=== PATIENT | female | born 1985 | race Caucasian/White ===

== ENCOUNTER 2016-07-02 13:17 | Emergency (ER) | payer SELFPAY ==
[2016-07-02] MEDS ORDERED: ONDANSETRON HCL INJ/PF 4 MG/2 ML SDV IV ONE ×2 (13:33→18:25)
[2016-07-02] MEDS ORDERED: NORMAL SALINE 1000 ML 1,000 ML IV ONE (13:33)
--- NOTE | 2016-07-02 13:34 | ER Document Report ---
ED Medical Screen (RME) - General Chief Complaint: Abdominal Pain Stated Complaint: ABDOMINAL PAIN Time Seen by Provider: 07/02/16 13:30 Notes: Patient resents with a few months of some intermittent abdominal nonradiating "pain" initially to her epigastric and right upper quadrant region and now in the lower pelvic region. She denies any dysuria, diarrhea, and has had intermittent vomiting. She denies . TRAVEL OUTSIDE OF THE [place] IN LAST 30 DAYS: Yes - Related Data Allergies/Adverse Reactions: No Known Allergies Allergy (Verified 12/25/11 10:38) Past Medical History - Past Medical History Cardiac Medical History: Denies: Hx Coronary Artery Disease, Hx Hypertension Pulmonary Medical History: Denies: Hx Asthma Endocrine Medical History: Denies: Hx Diabetes Mellitus Type 1, Hx Diabetes Mellitus Type 2 Renal/ Medical History: Denies: Hx Peritoneal Dialysis Past Surgical History: Reports: Hx Tonsillectomy, Hx Urinary Tract Surgery - Urethral stretching - Immunizations Hx Diphtheria, Pertussis, Tetanus Vaccination: Yes Physical Exam - Vital signs Vitals: Temp Pulse Resp BP Pulse Ox 98.2 F 131 H 18 122/100 H 97 07/02/16 13:22 07/02/16 13:22 07/02/16 13:22 07/02/16 13:22 07/02/16 13:22 Course - Vital Signs Vital signs: Temp Pulse Resp BP Pulse Ox 98.2 F 131 H 18 122/100 H 97 07/02/16 13:22 07/02/16 13:22 07/02/16 13:22 07/02/16 13:22 07/02/16 13:22
[2016-07-02 14:28] LABS: ABSOLUTE LYMPHOCYTES (AUTO) 2.4 10^3/uL (0.5-4.7); ABSOLUTE MONOCYTES (AUTO) 0.9 10^3/uL (0.1-1.4); ABSOLUTE NEUT (AUTO) 11.2 10^3/uL (1.7-8.2); BASOPHILS % (AUTO) 0.3 % (0-2); EOSINOPHILS % (AUTO) 0.3 % (0-6); HEMATOCRIT 39.6 % (36.0-47.0); HEMOGLOBIN 13.1 g/dL (12.0-15.5); HGB HCT DIFFERENCE -0.3; LYMPHOCYTES % (AUTO) 16.7 % (13-45); MEAN CORPUSCULAR HEMOGLOBIN 29.1 pg (27.0-33.4); MEAN CORPUSCULAR VOLUME 88 fl (80-97); MONOCYTES % (AUTO) 6.3 % (3-13); RED CELL DISTRIBUTION WIDTH 13.7 % (11.5-14.0); SEGMENTED NEUTROPHILS % (AUTO) 76.4 % (42-78); WHITE BLOOD COUNT 14.6 10^3/uL (4.0-10.5)
[2016-07-02 14:49] LABS: APPEARANCE,URINE SLIGHTLY-CLOUDY; BILIRUBIN,URINE NEGATIVE (NEGATIVE); GLUCOSE, URINE NEGATIVE (NEGATIVE); KETONES,URINE NEGATIVE (NEGATIVE); LEUKOCYTE ESTERASE,URINE NEGATIVE (NEGATIVE); NITRITE,URINE NEGATIVE (NEGATIVE); PROTEIN,URINE NEGATIVE (NEGATIVE); URINE SPECIFIC GRAVITY 1.028; UROBILINOGEN,URINE NEGATIVE mg/dL (<2.0)
[2016-07-02 14:51] LABS: BLOOD UREA NITROGEN 10 mg/dL (7-20); CALCIUM 10.4 mg/dL (8.4-10.2); CREATININE RESULT 0.85 mg/dL (0.52-1.25); GLUCOSE 92 mg/dL (75-110)
[2016-07-02 14:52] LABS: ALANINE AMINOTRANSFERASE 33 U/L (9-52); ALBUMIN 4.1 g/dL (3.5-5.0); ALKALINE PHOSPHATASE 118 U/L (38-126); ANION GAP 14 (5-19); ASPARTATE AMINO TRANSFERASE 21 U/L (14-36); BILIRUBIN,DIRECT 0.5 mg/dL (0.0-0.4); BILIRUBIN,TOTAL 0.8 mg/dL (0.2-1.3); CARBON DIOXIDE 22 mmol/L (22-30); CHLORIDE 104 mmol/L (98-107); LIPASE 72.2 U/L (23-300); POTASSIUM 4.3 mmol/L (3.6-5.0); SODIUM 139.5 mmol/L (137-145); TOTAL PROTEIN 7.5 g/dL (6.3-8.2)
--- NOTE | 2016-07-02 14:56 | ER Document Report ---
ED GI/ - General Mode of Arrival: Ambulatory Information source: Patient TRAVEL OUTSIDE OF THE [place] IN LAST 30 DAYS: Yes - HPI Patient complains to provider of: Abdominal pain, Vomiting. No: Diarrhea Onset: Other - 3 weeks ago Location: LLQ, RLQ Associated symptoms: Other - see notes above <GURPREET TOVAR - Last Filed: 07/02/16 18:28> <RENÉ ABBASI - Last Filed: 07/02/16 22:27> - General Chief Complaint: Abdominal Pain Stated Complaint: ABDOMINAL PAIN Time Seen by Provider: 07/02/16 14:40 Notes: 30 year old female with history of PCOS presents to the ED complaining of intermittent bilateral lower quadrant abdominal pain that started 3 weeks ago. Patient additionally complains of chills, constipation, nausea, and vomiting in the past 48 hours, but denies any diarrhea or fever. Patient denies any nausea or vomiting today. Patient reports that she feels worse today than she was yesterday stating that her abdominal pain has worsened. Patient was historically (2013) taking Victoza and Metformin, but has since stopped taking the medication after she was having episodes of nausea and vomiting when starting it. Patient had a endoscopy performed in 2013 which resulted in no significant findings. (GURPREET TOVAR) - Related Data Allergies/Adverse Reactions: No Known Allergies Allergy (Verified 12/25/11 10:38) Past Medical History - General Information source: Patient - Social History Smoking Status: Never Smoker Chew tobacco use (# tins/day): No Frequency of alcohol use: None Drug Abuse: None Family History: Reviewed & Not Pertinent Renal/ Medical History: Reports: Other - PCOS Past Surgical History: Reports: Hx Tonsillectomy, Hx Urinary Tract Surgery - Urethral stretching - Immunizations Hx Diphtheria, Pertussis, Tetanus Vaccination: Yes <GURPREET TOVAR - Last Filed: 07/02/16 18:28> Review of Systems - Review of Systems Constitutional: See HPI, Chills. denies: Fever EENT: No symptoms reported Cardiovascular: No symptoms reported Respiratory: No symptoms reported Gastrointestinal: See HPI, Nausea, Vomiting, Constipation. denies: Diarrhea Genitourinary: No symptoms reported Female Genitourinary: No symptoms reported Musculoskeletal: No symptoms reported Skin: No symptoms reported Hematologic/Lymphatic: No symptoms reported Neurological/Psychological: No symptoms reported -: Yes All other systems reviewed and negative <GURPREET TOVAR - Last Filed: 07/02/16 18:28> Physical Exam - Vital signs Interpretation: Normal - General General appearance: Appears well, Alert - HEENT Head: Normocephalic, Atraumatic Eyes: Normal Pupils: PERRL - Respiratory Respiratory status: No respiratory distress Chest status: Nontender Breath sounds: Normal Chest palpation: Normal - Cardiovascular Rhythm: Regular Heart sounds: Normal auscultation Murmur: No - Abdominal Inspection: Normal Distension: No distension Bowel sounds: Normal Tenderness: Tender - Mild diffuse, worse in bilateral lower quadrant. No: Guarding, Rebound Organomegaly: No organomegaly - Back Back: Normal, Nontender - Extremities General upper extremity: Normal inspection, Nontender, Normal color, Normal ROM , Normal temperature General lower extremity: Normal inspection, Nontender, Normal color, Normal ROM , Normal temperature, Normal weight bearing. No: Sharon's sign - Neurological Neuro grossly intact: Yes Cognition: Normal Orientation: AAOx4 [place] Coma Scale Eye Opening: Spontaneous Lucia Coma Scale Verbal: Oriented Lucia Coma Scale Motor: Obeys Commands Lucia Coma Scale Total: 15 Speech: Normal Motor strength normal: LUE, RUE, LLE, RLE Sensory: Normal - Psychological Associated symptoms: Normal affect, Normal mood - Skin Skin Temperature: Warm Skin Moisture: Dry Skin Color: Normal <RENÉ ABBASI - Last Filed: 07/02/16 22:27> - Vital signs Vitals: Temp Pulse Resp BP Pulse Ox 98.2 F 131 H 18 122/100 H 97 07/02/16 13:22 07/02/16 13:22 07/02/16 13:22 07/02/16 13:22 07/02/16 13:22 Course - Laboratory Result Diagrams: 07/02/16 13:45 07/02/16 13:45 <GURPREET TOVAR - Last Filed: 07/02/16 18:28> - Laboratory Result Diagrams: 07/02/16 13:45 07/02/16 13:45 - Diagnostic Test Radiology reviewed: Reports reviewed <RENÉ ABBASI - Last Filed: 07/02/16 22:27> - Re-evaluation Re-evalutation: 07/02/16 15:23 Patient was updated on results. 07/02/16 16:14 Patient was updated on results. (GURPREET TOVAR) 07/02/16 18:26 Patient is a 30-year-old female who comes in complaining of abdominal pain and vomiting. Patient has a CT showing diverticulitis. Patient given Cipro and Flagyl. Patient is able to tolerate by mouth. She'll be discharged home with antibiotics, pain and nausea medication. Patient has a appointment with a new primary doctor next week which she is instructed to keep. Return immediately if any worsening or concerning symptoms. Understands and agrees with plan. Grateful for care. (RENÉ ABBASI) - Vital Signs Vital signs: Temp Pulse Resp BP Pulse Ox 97.8 F 112 H 20 149/85 H 97 07/02/16 19:11 07/02/16 19:11 07/02/16 19:11 07/02/16 19:11 07/02/16 19:11 - Laboratory Laboratory results interpreted by me: 07/02/16 07/02/16 07/02/16 13:40 13:45 13:45 WBC 14.6 H Absolute Neutrophils 11.2 H Calcium 10.4 H Direct Bilirubin 0.5 H Urine Blood SMALL H Discharge <GURPREET TOVAR - Last Filed: 07/02/16 18:28> <RENÉ ABBASI - Last Filed: 07/02/16 22:27> - Discharge Clinical Impression: Diverticulitis large intestine Qualifiers: Diverticulitis bleeding: without bleeding Diverticulitis complication: without perforation or abscess Qualified Code(s): K57.32 - Diverticulitis of large intestine without perforation or abscess without bleeding Condition: Stable Disposition: HOME, SELF-CARE Instructions: Diverticulitis ([facility]) Additional Instructions: Please follow-up with your doctor next week as scheduled. Prescriptions: Ciprofloxacin HCl [Cipro 500 mg Tablet] 500 mg PO BID #20 tablet Metoclopramide HCl [Reglan 10 mg Tablet] 1 - 2 tab PO ASDIR PRN #25 tablet PRN Reason: Metronidazole [Flagyl 500 mg Tablet] 500 mg PO TID #30 tablet Ondansetron [Zofran Odt 4 mg Tablet] 1 - 2 tab PO Q4H PRN #15 tab.rapdis PRN Reason: For Nausea/Vomiting Forms: Return to Work Scribe Attestation: 07/02/16 22:27 I personally performed the services described in the documentation, reviewed and edited the documentation which was dictated to the scribe in my presence, and it accurately records my words and actions. (RENÉ ABBASI) Scribe Documentation - Scribe Written by Paras:: Paras Harrison, 07/02/2016 1536 acting as scribe for :: Wilfrido <GURPREET TOVAR - Last Filed: 07/02/16 18:28>
[2016-07-02] MEDS ORDERED: CIPROFLOXACIN 400 MG/D5W RTU 200 ML IV ONE (16:15)
[2016-07-02] MEDS ORDERED: METRONIDAZOLE 500 MG/NS RTU 100 ML IV ONE (16:15)
[2016-07-02] MEDS ORDERED: ACETAMINOPHEN 325 MG TABLET PO ONE (18:25)
[2016-07-02] MEDS ORDERED: ONDANSETRON ODT 4 MG TAB (6 TAB/DSPK) PO PRN (18:56)
[2016-07-02 19:12] VITALS: BP 149/85
== END 2016-07-02 19:12 | disposition home or self-care (01) ==
LOC: ER 13:17
DX: R10.31 Right lower quadrant pain (principal); K57.32 Diverticulitis of large intestine without perforation or abscess without bleeding; R10.32 Left lower quadrant pain; R11.2 Nausea with vomiting, unspecified
CPT/HCPCS: 96376; 99284; 96375; 96365; 96368; 36415; 83690; 85025; 81025; 80053; 81001; 74177; J2405; J7030; J0744

== ENCOUNTER 2016-07-10 06:08 | Emergency (ER) | payer SELFPAY ==
[2016-07-10] MEDS ORDERED: NORMAL SALINE 1000 ML 1,000 ML IV ONE (06:19)
[2016-07-10] MEDS ORDERED: ONDANSETRON HCL INJ/PF 4 MG/2 ML SDV IV ONE (06:54)
[2016-07-10] MEDS ORDERED: MORPHINE SULFATE 10 MG/ML INJ IV ONE (06:54)
--- NOTE | 2016-07-10 06:56 | ER Document Report ---
ED General - General Chief Complaint: Abdominal Pain Stated Complaint: ABDOMINAL PAIN Time Seen by Provider: 07/10/16 06:09 Mode of Arrival: Ambulatory Information source: Patient Notes: 30-year-old female history of diverticulitis diagnosed 1 week prior and placed on Cipro and Flagyl with complaints of continued pain. Patient denies any fevers or chills admits to mild nausea vomiting patient notes symptoms would improve with antibiotics but since yesterday the pain has worsened patient is to see her surgeon today TRAVEL OUTSIDE OF THE [place] IN LAST 30 DAYS: No - HPI Onset: Last week Onset/Duration: Worse Quality of pain: Sharp Severity: Mild Pain Level: 1 Associated symptoms: Nausea, Vomiting Exacerbated by: Denies Relieved by: Denies Similar symptoms previously: Yes Recently seen / treated by doctor: Yes - Related Data Allergies/Adverse Reactions: No Known Allergies Allergy (Verified 12/25/11 10:38) Past Medical History - Social History Smoking Status: Never Smoker Cigarette use (# per day): No Chew tobacco use (# tins/day): No Smoking Education Provided: No Family History: Reviewed & Not Pertinent - Past Medical History Cardiac Medical History: Denies: Hx Coronary Artery Disease, Hx Hypertension Pulmonary Medical History: Denies: Hx Asthma Endocrine Medical History: Denies: Hx Diabetes Mellitus Type 1, Hx Diabetes Mellitus Type 2 Renal/ Medical History: Denies: Hx Peritoneal Dialysis Past Surgical History: Reports: Hx Tonsillectomy, Hx Urinary Tract Surgery - Urethral stretching - Immunizations Hx Diphtheria, Pertussis, Tetanus Vaccination: Yes Review of Systems - Review of Systems Notes: PHYSICAL EXAMINATION: GENERAL: Well-appearing, well-nourished and in no acute distress. HEAD: Atraumatic, normocephalic. EYES: Pupils equal round and reactive to light, extraocular movements intact, conjunctiva are normal. ENT: Nares patent, oropharynx clear without exudates. Moist mucous membranes. NECK: Normal range of motion, supple without lymphadenopathy LUNGS: Breath sounds clear to auscultation bilaterally and equal. No wheezes rales or rhonchi. HEART: Regular rate and rhythm without murmurs ABDOMEN: Soft, mildly tender in the suprapubic region Female : deferred Musculoskeletal: Normal range of motion, no pitting or edema. No cyanosis. NEUROLOGICAL: Cranial nerves grossly intact. Normal speech, normal gait. Normal sensory, motor exams PSYCH: Normal mood, normal affect. SKIN: Warm, Dry, normal turgor, no rashes or lesions noted. Physical Exam - Vital signs Vitals: Temp Pulse Resp BP Pulse Ox 98.4 F 109 H 18 139/97 H 98 07/10/16 06:14 07/10/16 06:14 07/10/16 06:14 07/10/16 06:14 07/10/16 06:14 Course - Re-evaluation Re-evalutation: 07/10/16 06:56 CT has been ordered with oral and IV contrast lab work pending 07/10/16 11:45 Patient notes improvement of her diverticulitis, patient does have gallstones and ultrasound was performed no acute cholecystitis was noted. Patient to follow-up with her surgeon for further care After performing a Medical Screening Examination, I estimate there is LOW risk for ACUTE APPENDICITIS, BOWEL OBSTRUCTION, ACUTE CHOLECYSTITIS, PERFORATED DIVERTICULITIS, INCARCERATED HERNIA, PANCREATITIS, PELVIC INFLAMMATORY DISEASE, PERFORATED ULCER, ECTOPIC , or TUBO-OVARIAN ABSCESS, thus I consider the discharge disposition reasonable. Also, there is no evidence or peritonitis , sepsis, or toxicity. I have reevaluated this patient multiple times and no significant life threatening changes are noted. The patient and I have discussed the diagnosis and risks, and we agree with discharging home with close follow-up with the understanding that symptoms and presentations can change. We also discussed returning to the Emergency Department immediately if new or worsening symptoms occur. We have discussed the symptoms which are most concerning (e.g., bloody stool, fever, changing or worsening pain, vomiting) that necessitate immediate return. - Vital Signs Vital signs: Temp Pulse Resp BP Pulse Ox 97.6 F 92 18 111/73 98 07/10/16 10:30 07/10/16 10:30 07/10/16 06:53 07/10/16 10:30 07/10/16 10:30 - Laboratory Result Diagrams: 07/10/16 07:30 07/10/16 07:30 Laboratory results interpreted by me: 07/10/16 07/10/16 07:30 07:30 WBC 11.2 H Absolute Neutrophils 8.3 H Glucose 111 H - Diagnostic Test Radiology reviewed: Image reviewed, Reports reviewed - Diverticulosis Discharge - Discharge Clinical Impression: Gallstones Abdominal pain Qualifiers: Abdominal location: generalized Qualified Code(s): R10.84 - Generalized abdominal pain Diverticulosis Qualifiers: Diverticulosis site: diverticulosis of large intestine Diverticulosis bleeding : diverticulosis without bleeding Qualified Code(s): K57.30 - Diverticulosis of large intestine without perforation or abscess without bleeding Condition: Stable Disposition: HOME, SELF-CARE Instructions: Abdominal Pain ([facility]) Referrals: ALEX ELDER MD [Primary Care Provider] - Follow up tomorrow
[2016-07-10] MEDS ORDERED: ACETAMINOPHEN 325 MG TABLET PO ONE (07:32)
[2016-07-10 07:39] LABS: ABSOLUTE MONOCYTES (AUTO) 0.7 10^3/uL (0.1-1.4); ABSOLUTE NEUT (AUTO) 8.3 10^3/uL (1.7-8.2); BASOPHILS % (AUTO) 0.4 % (0-2); EOSINOPHILS % (AUTO) 0.4 % (0-6); HEMATOCRIT 39.3 % (36.0-47.0); HEMOGLOBIN 13.3 g/dL (12.0-15.5); HGB HCT DIFFERENCE 0.6; MEAN CORPUSCULAR HEMOGLOBIN 29.3 pg (27.0-33.4); MEAN CORPUSCULAR HGB CONC 33.9 g/dL (32.0-36.0); MEAN CORPUSCULAR VOLUME 87 fl (80-97); MONOCYTES % (AUTO) 6.5 % (3-13); RED BLOOD COUNT 4.54 10^6/uL (3.72-5.28); RED CELL DISTRIBUTION WIDTH 13.7 % (11.5-14.0); SEGMENTED NEUTROPHILS % (AUTO) 74.7 % (42-78); WHITE BLOOD COUNT 11.2 10^3/uL (4.0-10.5)
[2016-07-10 07:52] LABS: ALANINE AMINOTRANSFERASE 30 U/L (9-52); ALBUMIN 3.9 g/dL (3.5-5.0); ALKALINE PHOSPHATASE 96 U/L (38-126); ANION GAP 10 (5-19); ASPARTATE AMINO TRANSFERASE 18 U/L (14-36); BILIRUBIN,DIRECT 0.4 mg/dL (0.0-0.4); BILIRUBIN,TOTAL 0.6 mg/dL (0.2-1.3); BLOOD UREA NITROGEN 7 mg/dL (7-20); CALCIUM 9.4 mg/dL (8.4-10.2); CARBON DIOXIDE 24 mmol/L (22-30); CHLORIDE 105 mmol/L (98-107); GLUCOSE 111 mg/dL (75-110); POTASSIUM 4.4 mmol/L (3.6-5.0); SODIUM 138.7 mmol/L (137-145); TOTAL PROTEIN 6.8 g/dL (6.3-8.2)
--- NOTE | 2016-07-10 09:40 | RADIOLOGY REPORT (SQ) ---
EXAM DESCRIPTION: CT ABD/PELVIS WITH IV ORAL COMPLETED DATE/TIME: 07/10/2016 9:28 am REASON FOR STUDY: hx diverticulitis COMPARISON: 07/02/2016. TECHNIQUE: CT scan of the abdomen and pelvis performed using helical scanning technique with dynamic intravenous contrast injection. No oral contrast. Images reviewed with lung, soft tissue, and bone windows. Reconstructed coronal and sagittal MPR images reviewed. Delayed images for evaluation of the urinary system also acquired. All images stored on PACS. All CT scanners at this facility use dose modulation, iterative reconstruction, and/or weight based d osing when appropriate to reduce radiation dose to as low as reasonably achievable (ALARA). [facility]: Dose Right [facility]: CareDose [facility]: Dose Right [facility]: Teradose 4D [facility]: [employer] Software CONTRAST TYPE AND DOSE: 99mL Isovue 370- low osmolar. RENAL FUNCTION: None required. The patient is less than 50 years old. RADIATION DOSE: 42.11mGy. LIMITATIONS: None. FINDINGS: LOWER CHEST: No significant findings. No nodules or infiltrates. LIVER: Normal size. No masses or dilated ducts. SPLEEN: Normal size. No focal lesions. PANCREAS: No masses. No significant calcifications. No adjacent inflammation or peripancreatic fluid collections. Pancreatic duct not dilated. GALLBLADDER: Gallstones. No inflammatory changes to suggest cholecystitis. ADRENAL GLANDS: No significant masses or asymmetry. RIGHT KIDNEY AND URETER: No solid masses. No significant calcifications. No hydronephrosis or hyd roureter. LEFT KIDNEY AND URETER: No solid masses. No significant calcifications. No hydronephrosis or hydr oureter. AORTA AND VESSELS: No aneurysm. No dissection. Renal arteries, SMA, celiac without stenosis. RETROPERITONEUM: No retroperitoneal adenopathy, hemorrhage or masses. BOWEL AND PERITONEAL CAVITY: Diverticuli in the colon. No masses or inflammatory changes. No free fl uid or peritoneal masses. APPENDIX: Normal. PELVIS: No mass or free fluid. Normal bladder. ABDOMINAL WALL: No masses. No hernias. BONES: No significant or acute findings. OTHER: No other significant finding. IMPRESSION: 1. COLONIC DIVERTICULOSIS. PREVIOUSLY SEEN FOCAL DIVERTICULITIS IN THE RIGHT UPPER QUADRANT IS NO LO NGER PRESENT. 2. GALLSTONES. 3. NO OTHER SIGNIFICANT OR ACUTE FINDING IN THE ABDOMEN OR PELVIS ON CT SCAN WITH IV CONTRAST. TECHNICAL DOCUMENTATION: JOB ID: [id number] Quality ID # [id number]: Final reports with documentation of one or more dose reduction techniques (e.g., Au tomated exposure control, adjustment of the mA and/or kV according to patient size, use of iterative reconstruction technique) 2010 [employer]- All Rights Reserved
[2016-07-10 10:37] VITALS: BP 111/73
--- NOTE | 2016-07-10 11:12 | RADIOLOGY REPORT (SQ) ---
EXAM DESCRIPTION: U/S ABDOMEN LIMITED W/O DOP COMPLETED DATE/TIME: 07/10/2016 10:57 am REASON FOR STUDY: RUQ pain COMPARISON: None. TECHNIQUE: Dynamic and static grayscale images acquired of the abdomen and recorded on PACS. Additio nal selected color Doppler and spectral images recorded. LIMITATIONS: None. FINDINGS: PANCREAS: No masses. Visualized pancreatic duct normal caliber. LIVER: No masses. Echotexture normal. LIVER VASCULATURE: Normal directional flow of the main portal vein and hepatic veins. GALLBLADDER: Contracted. Numerous gallstones with wall-echo -shadow sign. ULTRASOUND-DETECTED OCONNELL'S SIGN: Negative. INTRAHEPATIC DUCTS AND COMMON DUCT: CBD and intrahepatic ducts normal caliber. No filling defects. INFERIOR VENA CAVA: Normal flow. AORTA: No aneurysm. RIGHT KIDNEY: Normal size. Normal echogenicity. No solid or suspicious masses. No hydronephrosis. No calcifications. PERITONEAL AND RIGHT PLEURAL SPACE: No ascites or effusions. OTHER: No other significant findings. IMPRESSION: NUMEROUS GALLSTONES. NO BILIARY DILATION. REPORTED NEGATIVE SONOGRAPHIC OCONNELL SIGN. NO OTHER SIGNIFICANT FINDINGS. TECHNICAL DOCUMENTATION: JOB ID: [id number] [employer]- All Rights Reserved
== END 2016-07-10 11:58 | disposition home or self-care (01) ==
LOC: ER 06:08
DX: K57.30 Diverticulosis of large intestine without perforation or abscess without bleeding (principal); K85.10 Biliary acute pancreatitis without necrosis or infection; R10.84 Generalized abdominal pain; R11.2 Nausea with vomiting, unspecified; Z79.899 Other long term (current) drug therapy
CPT/HCPCS: 99284; 96361; 96374; 36415; 85025; 80053; 76705; 74177; J2405; J7030

== ENCOUNTER 2017-01-10 10:15 | Observation (INO) | payer OTHER ==
--- NOTE | 2017-01-10 10:40 | ER Document Report ---
ED Medical Screen (RME) - General Chief Complaint: Abdominal Pain Stated Complaint: ABDOMINAL PAIN Time Seen by Provider: 01/10/17 10:39 Notes: Patient says that she has been having pain across the upper abdomen since about 1 AM this morning. Patient has had similar pains at least 3 or 4 times in the past and has been told she has gallstones and gallbladder disease. She is vomited about 3 or 4 times. Has not had a fever, but has had cold sweats. Only medication control pills. No abdominal surgeries. TRAVEL OUTSIDE OF THE [place] IN LAST 30 DAYS: No - Related Data Allergies/Adverse Reactions: No Known Allergies Allergy (Verified 01/10/17 10:18) Past Medical History - Past Medical History Cardiac Medical History: Denies: Hx Coronary Artery Disease, Hx Hypertension Pulmonary Medical History: Denies: Hx Asthma Endocrine Medical History: Denies: Hx Diabetes Mellitus Type 1, Hx Diabetes Mellitus Type 2 Renal/ Medical History: Denies: Hx Peritoneal Dialysis Past Surgical History: Reports: Hx Tonsillectomy, Hx Urinary Tract Surgery - Urethral stretching - Immunizations Hx Diphtheria, Pertussis, Tetanus Vaccination: Yes Physical Exam - Vital signs Vitals: Temp Pulse Resp BP Pulse Ox 97.9 F 71 20 163/87 H 98 01/10/17 10:19 01/10/17 10:19 01/10/17 10:19 01/10/17 10:19 01/10/17 10:19 Course - Vital Signs Vital signs: Temp Pulse Resp BP Pulse Ox 97.9 F 71 20 163/87 H 98 01/10/17 10:19 01/10/17 10:19 01/10/17 10:19 01/10/17 10:19 01/10/17 10:19
[2017-01-10] MEDS ORDERED: ONDANSETRON HCL INJ/PF 4 MG/2 ML SDV IV ONE (10:41)
[2017-01-10] MEDS ORDERED: KETOROLAC TROMETHAMINE INJ/PF 30 MG/1 ML SDV IV ONE (10:41)
[2017-01-10 11:09] LABS: ABSOLUTE BASOPHILS # (AUTO) 0.1 10^3/uL (0.0-0.2); ABSOLUTE MONOCYTES (AUTO) 0.3 10^3/uL (0.1-1.4); ABSOLUTE NEUT (AUTO) 12.4 10^3/uL (1.7-8.2); BASOPHILS % (AUTO) 0.5 % (0-2); HEMATOCRIT 42.7 % (36.0-47.0); HEMOGLOBIN 14.4 g/dL (12.0-15.5); HGB HCT DIFFERENCE 0.5; LYMPHOCYTES % (AUTO) 7.4 % (13-45); MEAN CORPUSCULAR HEMOGLOBIN 29.7 pg (27.0-33.4); MEAN CORPUSCULAR HGB CONC 33.6 g/dL (32.0-36.0); MEAN CORPUSCULAR VOLUME 88 fl (80-97); MONOCYTES % (AUTO) 2.5 % (3-13); RED BLOOD COUNT 4.85 10^6/uL (3.72-5.28); RED CELL DISTRIBUTION WIDTH 13.4 % (11.5-14.0); SEGMENTED NEUTROPHILS % (AUTO) 89.6 % (42-78); WHITE BLOOD COUNT 13.9 10^3/uL (4.0-10.5)
[2017-01-10 11:14] LABS: APPEARANCE,URINE CLEAR; BILIRUBIN,URINE NEGATIVE (NEGATIVE); GLUCOSE, URINE NEGATIVE (NEGATIVE); KETONES,URINE TRACE mg/dL (NEGATIVE); LEUKOCYTE ESTERASE,URINE NEGATIVE (NEGATIVE); NITRITE,URINE NEGATIVE (NEGATIVE); PROTEIN,URINE 100 mg/dL (NEGATIVE); URINE SPECIFIC GRAVITY 1.027; UROBILINOGEN,URINE NEGATIVE mg/dL (<2.0)
[2017-01-10 11:29] LABS: ALANINE AMINOTRANSFERASE 44 U/L (9-52); ALBUMIN 4.4 g/dL (3.5-5.0); ALKALINE PHOSPHATASE 115 U/L (38-126); ANION GAP 17 (5-19); ASPARTATE AMINO TRANSFERASE 29 U/L (14-36); BILIRUBIN,DIRECT 0.4 mg/dL (0.0-0.4); BILIRUBIN,TOTAL 0.5 mg/dL (0.2-1.3); BLOOD UREA NITROGEN 7 mg/dL (7-20); CALCIUM 9.9 mg/dL (8.4-10.2); CARBON DIOXIDE 24 mmol/L (22-30); CHLORIDE 104 mmol/L (98-107); CREATININE RESULT 0.67 mg/dL (0.52-1.25); GLUCOSE 127 mg/dL (75-110); LIPASE 89.2 U/L (23-300); POTASSIUM 4.5 mmol/L (3.6-5.0); SODIUM 145.3 mmol/L (137-145); TOTAL PROTEIN 7.5 g/dL (6.3-8.2)
[2017-01-10] MEDS ORDERED: NORMAL SALINE 1000 ML 1,000 ML IV ONE ×2 (11:43)
[2017-01-10] MEDS ORDERED: ROCURONIUM BROMIDE INJ 50 MG/5 ML VIAL IV ONE (13:19)
[2017-01-10] MEDS ORDERED: SUCCINYLCHOLINE CHLORIDE INJ 200 MG/10 ML VIAL ONE (13:19)
--- NOTE | 2017-01-10 14:09 | RADIOLOGY REPORT (SQ) ---
EXAM DESCRIPTION: U/S ABDOMEN LIMITED W/O DOP COMPLETED DATE/TIME: 01/10/2017 1:42 pm REASON FOR STUDY: ruq epi pain after thanksgiving COMPARISON: 07/10/2016 TECHNIQUE: Dynamic and static grayscale images acquired of the abdomen and recorded on PACS. Michaelo octavio selected color Doppler and spectral images recorded. LIMITATIONS: None. FINDINGS: PANCREAS: No masses. Visualized pancreatic duct normal caliber. LIVER: No masses. Echotexture normal. LIVER VASCULATURE: Normal directional flow of the main portal vein and hepatic veins. GALLBLADDER: Gallstone(s). No pericholecystic fluid. No wall thickening. ULTRASOUND-DETECTED OCONNELL'S SIGN: Negative. INTRAHEPATIC DUCTS AND COMMON DUCT: CBD and intrahepatic ducts normal caliber. No filling defects. INFERIOR VENA CAVA: Normal flow. AORTA: No aneurysm. RIGHT KIDNEY: Normal size. Normal echogenicity. No solid or suspicious masses. No hydronephrosis. No calcifications. PERITONEAL AND RIGHT PLEURAL SPACE: No ascites or effusions. OTHER: No other significant findings. IMPRESSION: Cholelithiasis. TECHNICAL DOCUMENTATION: JOB ID: [id number]- All Rights Reserved
[2017-01-10] MEDS ORDERED: LEVOFLOXACIN 750 MG/D5W RTU 750 MG/150 ML RTUPB IV ONE (14:12)
[2017-01-10] MEDS ORDERED: BUPIVACAINE HCL 0.25 % INJ/PF (2.5 MG/1 ML) 30 ML VIAL ONE (14:23)
--- NOTE | 2017-01-10 14:26 | ER Document Report ---
ED General - General Chief Complaint: Abdominal Pain Stated Complaint: ABDOMINAL PAIN Time Seen by Provider: 01/10/17 10:39 TRAVEL OUTSIDE OF THE [place] IN LAST 30 DAYS: No - HPI Patient complains to provider of: Right upper quadrant abdominal pain Notes: Patient coming her right upper quadrant abdominal pain. Patient states started after eating Thanksgiving dinner yesterday. States last time she ate was 8:00. Patient states having slight nausea and vomiting. Patient has a history of gallstones and has been seen in the ER now total of 3 times for gallstones also states has a history of diverticulitis in the right upper quadrant in her colon. Denies any fever chills denies any diarrhea. Patient states most the pain is in the epigastric right upper quadrant region. Patient resting comfortably upon my evaluation. - Related Data Allergies/Adverse Reactions: No Known Allergies Allergy (Verified 01/10/17 10:18) Home Medications: Current Home Medications Norgestimate-Ethinyl Estradiol [Ortho Tri-Cyclen 28 Tablet] 1 tab PO DAILY 01/10 [History] Past Medical History - Social History Smoking Status: Current Some Day Smoker Chew tobacco use (# tins/day): No Frequency of alcohol use: Social Drug Abuse: None Family History: Reviewed & Not Pertinent Patient has suicidal ideation: No Patient has homicidal ideation: No - Past Medical History Cardiac Medical History: Denies: Hx Coronary Artery Disease, Hx Hypertension Pulmonary Medical History: Denies: Hx Asthma Endocrine Medical History: Denies: Hx Diabetes Mellitus Type 1, Hx Diabetes Mellitus Type 2 Renal/ Medical History: Denies: Hx Peritoneal Dialysis Past Surgical History: Reports: Hx Tonsillectomy, Hx Urinary Tract Surgery - Urethral stretching - Immunizations Hx Diphtheria, Pertussis, Tetanus Vaccination: Yes Review of Systems - Review of Systems Constitutional: No symptoms reported EENT: No symptoms reported Cardiovascular: No symptoms reported Respiratory: No symptoms reported Gastrointestinal: Abdominal pain Genitourinary: No symptoms reported Female Genitourinary: No symptoms reported Musculoskeletal: No symptoms reported Skin: No symptoms reported Hematologic/Lymphatic: No symptoms reported Neurological/Psychological: No symptoms reported -: Yes All other systems reviewed and negative Physical Exam - Vital signs Vitals: Temp Pulse Resp BP Pulse Ox 97.9 F 71 20 163/87 H 98 01/10/17 10:19 01/10/17 10:19 01/10/17 10:19 01/10/17 10:19 01/10/17 10:19 Interpretation: Normal - General General appearance: Appears well, Alert - HEENT Head: Normocephalic, Atraumatic Eyes: Normal Pupils: PERRL - Respiratory Respiratory status: No respiratory distress Chest status: Nontender Breath sounds: Normal Chest palpation: Normal - Cardiovascular Rhythm: Regular Heart sounds: Normal auscultation Murmur: No - Abdominal Inspection: Normal Distension: No distension Bowel sounds: Normal Tenderness: Tender, Rose's sign, Guarding. No: McBurney's point, Rebound Organomegaly: No organomegaly - Back Back: Normal, Nontender - Extremities General upper extremity: Normal inspection, Nontender, Normal color, Normal ROM , Normal temperature General lower extremity: Normal inspection, Nontender, Normal color, Normal ROM , Normal temperature, Normal weight bearing. No: Sharon's sign - Neurological Neuro grossly intact: Yes Cognition: Normal Orientation: AAOx4 Bushnell Coma Scale Eye Opening: Spontaneous Bushnell Coma Scale Verbal: Oriented Lucia Coma Scale Motor: Obeys Commands Bushnell Coma Scale Total: 15 Speech: Normal Motor strength normal: LUE, RUE, LLE, RLE Sensory: Normal - Psychological Associated symptoms: Normal affect, Normal mood - Skin Skin Temperature: Warm Skin Moisture: Dry Skin Color: Normal Course - Re-evaluation Re-evalutation: 01/10/17 15:14 Patient's lab work with a slight leukocytosis. Ultrasound shows cholelithiasis. General surgery on-call down to evaluate another patient I did ask him to evaluate the patient in her room at the discussion recommended the patient for a total cystectomy. Requested Levaquin. Patient will remain n.p.o. Levaquin will be ordered. Patient will be going to the OR for gallbladder removal. - Vital Signs Vital signs: Temp Pulse Resp BP Pulse Ox 97.8 F 75 20 160/80 H 100 01/10/17 14:09 01/10/17 14:09 01/10/17 14:09 01/10/17 14:09 01/10/17 14:09 - Laboratory Result Diagrams: 01/10/17 10:58 01/10/17 10:58 Laboratory results interpreted by me: 01/10/17 01/10/17 01/10/17 10:45 10:58 10:58 WBC 13.9 H Seg Neutrophils % 89.6 H Lymphocytes % 7.4 L Monocytes % 2.5 L Absolute Neutrophils 12.4 H Sodium 145.3 H Glucose 127 H Urine Protein 100 H Urine Ketones TRACE H Discharge - Discharge Clinical Impression: Symptomatic cholelithiasis Condition: Good Disposition: ADMITTED OBSERVATION Admitting Provider: Surgicalist Zachariah Torres Unit Admitted: OR
[2017-01-10] MEDS ORDERED: FENTANYL CITRATE INJ/PF 100 MCG/2 ML AMPUL ONE ×2 (14:57→15:42)
[2017-01-10] MEDS ORDERED: DEXAMETHASONE SOD PHOSPHATE INJ 4 MG/1 ML VIAL ONE (14:58)
[2017-01-10] MEDS ORDERED: ONDANSETRON HCL INJ/PF 4 MG/2 ML SDV ONE (14:58)
[2017-01-10] MEDS ORDERED: PROPOFOL INJ 200 MG/20 ML VIAL IV ONE (14:58)
[2017-01-10] MEDS ORDERED: MIDAZOLAM 2 MG/2 ML INJ ONE (14:58)
[2017-01-10] MEDS ORDERED: IBUPROFEN INJ 800 MG/8 ML VIAL IV ONE (14:59)
[2017-01-10] MEDS ORDERED: MORPHINE SULFATE 10 MG/ML INJ ONE (14:59)
--- NOTE | 2017-01-10 15:08 | HISTORY AND PHYSICAL E ---
History and Physical NAME: MARION ANTHONY : 1985 AGE: 31Y ADMITTED: 01/10/2017 ROOM: ED07 HISTORY OF PRESENT ILLNESS: The patient presented to the Emergency Room a 3rd time with a history of pain in the upper abdomen/right upper quadrant area with nausea, lack of appetite. The patient presented to the Emergency Room 2 times in the past for the last 2-3 months, known to have multiple large gallstones, presented with more upper abdominal pain. The patient has no fever, no history of jaundice, and she was thought to have diverticular disease in the past also. REVIEW OF SYSTEMS: Review of systems as per examination. PHYSICAL EXAMINATION: GENERAL: She is awake, alert, oriented, and no jaundice. HEAD AND NECK EXAMINATION: No lymphadenopathy. No masses. CHEST EXAM: Both lungs are clear to auscultation. CARDIOVASCULAR EXAMINATION: Both heart sounds regular. No murmurs or gallops. ABDOMINAL EXAMINATION: She has a soft abdomen. Tenderness in the right upper quadrant area. No palpable masses. No palpable hernia. EXTREMITIES: Warm, well perfused. DIAGNOSTIC DATA: Her gallbladder ultrasound revealed multiple gallstones, large, borderline thickening of the gallbladder wall. White count 7.9. IMPRESSION OVERALL: 1. Acute cholecystitis with gallstones. 2. Recurrent presentation to the Emergency Room. PLAN: Admit. IV hydration. N.p.o. Levaquin started. Plan on cholecystectomy today. DICTATING PHYSICIAN: NIGEL LEONARD M.D. [id number] PHY#: [id number] ID: [id number] JOB#: [id number] ACCT: [id number] cc:JAILYN ELDER M.D. >
[2017-01-10] MEDS ORDERED: BUPIVACAINE HCL 0.5%-EPI 1:200000 INJ/PF 30 ML VIAL ONE (15:21)
[2017-01-10] MEDS ORDERED: PROMETHAZINE HCL INJ 25 MG/1 ML VIAL IV PRN ×2 (15:37)
[2017-01-10] MEDS ORDERED: DIPHENHYDRAMINE HCL 50 MG/ML VIAL IV PRN (15:37)
[2017-01-10] MEDS ORDERED: OXYCODONE-ACETAMINOPHEN 5-325 MG TABLET PO PRN ×2 (15:37)
[2017-01-10] MEDS ORDERED: MEPERIDINE HCL/PF INJ 25 MG/1 ML DISP.SYRIN IV PRN (15:37)
[2017-01-10] MEDS ORDERED: MORPHINE SULFATE 10 MG/ML INJ IV PRN (15:37)
[2017-01-10] MEDS ORDERED: FENTANYL CITRATE INJ/PF 100 MCG/2 ML AMPUL IV PRN ×3 (15:37)
[2017-01-10] MEDS ORDERED: HYDROMORPHONE HCL INJ/PF 2 MG/ML AMPULE IV PRN (16:41)
[2017-01-10] MEDS ORDERED: HYDROCODONE/ACETAMINOPHEN 5-325 MG TABLET PO PRN (16:41)
[2017-01-10] MEDS: ONDANSETRON HCL INJ/PF 4 MG/2 ML SDV IV PRN (17:27)
--- NOTE | 2017-01-10 18:03 | OPERATIVE REPORT E ---
Operative Report NAME: MARION ANTHONY : 1985 AGE: 31Y DATE OF SURGERY: 01/10/2017 ROOM: 533 PREOPERATIVE DIAGNOSIS: ACUTE CALCULOUS CHOLECYSTITIS. POSTOPERATIVE DIAGNOSIS: ACUTE CALCULOUS CHOLECYSTITIS. OPERATION: Laparoscopic cholecystectomy. SURGEON: NIGEL LEONARD M.D. ANESTHESIA: General. BLOOD LOSS: 10 mL. SPECIMEN: Gallbladder with contents, multiple gallstones. HISTORY AND INDICATIONS: Patient has history of gallstones, multiple episodes of cholecystitis in the past and previous visits to the emergency room with it. Now she came to the emergency room today. I saw her in the emergency room. She had tenderness in the right upper quadrant area with white cells of 13.9, consistent with acute cholecystitis, severe pain. Needs to have a cholecystectomy. I explained about indications of the operation, risks, benefits and complications, including but not limited to infection, bleeding, pain, bile leak, need for further interventions, possible in the future. All were thoroughly described, and with informed consent, she was taken to the operating room. DESCRIPTION OF PROCEDURE: After adequate anesthesia, in supine position, SCD boots, abdomen was cleaned and draped as a sterile field. Initial access, infraumbilical 1-cm incision was made, a 12-mm trocar inserted. Under direct laparoscopic visualization, 5-mm trocar inserted in the epigastric area, another 5-mm in the right upper quadrant. Findings: Gallbladder was acutely inflamed, distended, thick-walled, edematous, indicating acute cholecystitis, packed with multiple stones. Carefully, gallbladder neck was dissected. Cystic artery was small. It was dissected very carefully all around that area, after application of Hemoclips, divided with a Harmonic scalpel, with complete hemostasis. After that, the cystic duct was clearly dissected all around. After that, the gallbladder was decompressed. The cystic duct was distended. It was taken down from all the way to the gallbladder neck area. Now the cystic duct was circumferentially carefully clearly dissected all around it. It was ligated by 2 applications of Endoloop, one with 0 Vicryl, the other one with 0 PDS. Once it was suture-ligated, the cystic duct was divided close to the gallbladder neck. Gallbladder and its contents were retrieved with an Endo Catch bag. Afterwards, the gallbladder bed, the subhepatic area and abdominal cavity copiously irrigated and suctioned out completely, thoroughly hemostatic. Then all the trocars were removed and the pneumoperitoneum was evacuated. Closure with 0 Vicryl for the fascia in 2 layers and 3-0 and 4-0 Monocryl for the skin. Dressings were applied. Patient tolerated procedure without any problems and taken to recovery room in stable condition. DICTATING PHYSICIAN: NIGEL LEONARD M.D. [id number] PHY#: [id number] ID: [id number] JOB#: [id number] ACCT: [id number] cc:NIGEL LEONARD M.D. > MTDD
[2017-01-11] MEDS: ONDANSETRON HCL INJ/PF 4 MG/2 ML SDV IV PRN (05:22)
[2017-01-11 08:21] VITALS: BP 126/71
--- NOTE | 2017-01-11 09:43 | DISCHARGE SUMMARY E ---
Discharge Summary NAME: MARION ANTHONY : 1985 AGE: 31Y ADMITTED: 01/10/2017 DISCHARGED: 01/11/2017 ADMITTING DIAGNOSIS: Acute cholecystitis. DISCHARGE DIAGNOSIS: Acute cholecystitis. OPERATIVE PROCEDURE: Laparoscopic cholecystectomy. HOSPITAL COURSE: The patient was admitted for postop management. She was admitted to the emergency room and underwent surgery and recovering very well. Pain is minimal, afebrile. She is tolerating a regular diet and overall she is doing very well. Abdominal exam is soft, nontender. Recovery has been very uneventful. She will go home with [place] for the pain. Followup will be planned in 2 weeks in the office. At the time of discharge, patient doing very well. DICTATING PHYSICIAN: NIGEL LEONARD M.D. [id number] PHY#: [id number] ID: [id number] JOB#: [id number] ACCT: [id number] cc:JAILYN ELDER M.D. Jyotsna LEDBETTER M.D. >
[2017-01-11] MEDS ORDERED: LEVOFLOXACIN 750 MG/D5W RTU 750 MG/150 ML RTUPB IV SCH (10:00)
[2017-01-11] MEDS ORDERED: ENOXAPARIN SODIUM INJ 40 MG/0.4 ML DISP.SYRIN SUBCUT SCH (10:00)
--- NOTE | 2017-01-11 12:33 | DISCHARGE SUMMARY E ---
Discharge Summary NAME: MARION ANTHONY : 1985 AGE: 31Y ADMITTED: 01/10/2017 DISCHARGED: 01/11/2017 ADMITTING DIAGNOSIS: Acute cholecystitis. DISCHARGE DIAGNOSIS: Acute cholecystitis. OPERATIVE PROCEDURE: Laparoscopic cholecystectomy. HOSPITAL COURSE: Patient was admitted for overnight observation. This morning she is doing well and feeling better. Tolerating a regular diet. No pain. No nausea. Otherwise doing very well, so we will discharge her home. Normal for the pain. Followup will be planned in the office in 2 weeks. At the time of discharge, patient doing very well. DICTATING PHYSICIAN: NIGEL LEONARD M.D. [id number] PHY#: [id number] ID: [id number] JOB#: [id number] ACCT: [id number] cc:JAILYN ELDER M.D., S[place]AR M.D. GARRETT, JAMES M.D. >
== END 2017-01-11 11:55 | disposition home or self-care (01) ==
LOC: ER 10:15 → EH 14:30 → 5 17:15
PROVIDERS: ATTEND Colon & Rectal Surgery
PROC: 0FT44ZZ Resection of Gallbladder, Percutaneous Endoscopic Approach (ICD-10-PCS; principal; 2017-01-10 15:15)
DX: K80.10 Calculus of gallbladder with chronic cholecystitis without obstruction (principal); F17.200 Nicotine dependence, unspecified, uncomplicated
CPT/HCPCS: 99285; 96374; 96375; 36415; 83690; 84703; 85025; 80053; 81001; 88304 ×2; 76705; 47562; G0378 ×2; J2250; J3490 ×2; J1100; J3010; J1885; J2270; J0330; J2405 ×2; J2704; J1741; 790

== ENCOUNTER 2017-02-15 07:56 | Emergency (ER) | payer OTHER ==
--- NOTE | 2017-02-15 09:05 | ER Document Report ---
ED General - General Chief Complaint: Post Surgical Pain Stated Complaint: INCISION SITE BLEEDING Time Seen by Provider: 02/15/17 08:24 Mode of Arrival: Ambulatory Information source: Patient Notes: 31-year-old female who had cholecystectomy performed 1 month prior presents with complaints of pain at the incision of her umbilicus. Patient notes foul smell and redness. She denies any fevers or chills denies any abdominal pain notes pain just at the site TRAVEL OUTSIDE OF THE [place] IN LAST 30 DAYS: No - HPI Onset: Yesterday Onset/Duration: Sudden Quality of pain: Burning Severity: Mild Pain Level: 1 Associated symptoms: Other Exacerbated by: Denies Relieved by: Denies Similar symptoms previously: No Recently seen / treated by doctor: No - Related Data Allergies/Adverse Reactions: No Known Allergies Allergy (Verified 02/15/17 08:03) Past Medical History - Social History Smoking Status: Never Smoker Cigarette use (# per day): No Chew tobacco use (# tins/day): No Smoking Education Provided: No Family History: Reviewed & Not Pertinent - Past Medical History Cardiac Medical History: Denies: Hx Congestive Heart Failure, Hx Coronary Artery Disease, Hx Heart Attack, Hx Hypertension Pulmonary Medical History: Denies: Hx Asthma, Hx Bronchitis, Hx COPD, Hx Pneumonia, Hx Tuberculosis Neurological Medical History: Denies: Hx Seizures Endocrine Medical History: Denies: Hx Diabetes Mellitus Type 1, Hx Diabetes Mellitus Type 2 Renal/ Medical History: Denies: Hx End Stage Renal Disease, Hx Kidney Stones, Hx Peritoneal Dialysis GI Medical History: Denies: Hx Cirrhosis, Hx Gastroesophageal Reflux Disease, Hx Ulcer Musculoskeltal Medical History: Denies Hx Arthritis, Denies Hx Multiple Sclerosis Psychiatric Medical History: Denies: Hx Bipolar Disorder, Hx Depression, Hx Schizophrenia Past Surgical History: Reports: Hx Tonsillectomy, Hx Urinary Tract Surgery - Urethral stretching - Immunizations Hx Diphtheria, Pertussis, Tetanus Vaccination: Yes Review of Systems - Review of Systems Notes: REVIEW OF SYSTEMS: CONSTITUTIONAL : Denies fever, chills, or sweats. Denies recent illness. EENT: Denies eye, ear, throat, or mouth pain or symptoms. Denies nasal or sinus congestion or discharge. Denies throat, tongue, or mouth swelling or difficulty swallowing. CARDIOVASCULAR: Denies chest pain. Denies palpitations or racing or irregular heart beat. Denies ankle edema. RESPIRATORY: Denies cough, cold, or chest congestion. Denies shortness of breath, difficulty breathing, or wheezing. GASTROINTESTINAL: Denies abdominal pain or distention. Denies nausea, vomiting , or diarrhea. Denies blood in vomitus, stools, or per rectum. Denies black, tarry stools. Denies constipation. GENITOURINARY: Denies difficulty urinating, painful urination, burning, frequency, blood in urine, or discharge. FEMALE GENITOURINARY: Denies vaginal bleeding, heavy or abnormal periods, irregular periods. Denies vaginal discharge or odor. MUSCULOSKELETAL: Admits to redness drainage from incision SKIN: Denies rash, lesions or sores. HEMATOLOGIC : Denies easy bruising or bleeding. LYMPHATIC: Denies swollen, enlarged glands. NEUROLOGICAL: Denies confusion or altered mental status. Denies passing out or loss of consciousness. Denies dizziness or lightheadedness. Denies headache. Denies weakness or paralysis or loss of use of either side. Denies problems with gait or speech. Denies sensory loss, numbness, or tingling. Denies seizures. PSYCHIATRIC: Denies anxiety or stress. Denies depression, suicidal ideation, or homicidal ideation. ALL OTHER SYSTEMS REVIEWED AND NEGATIVE. PHYSICAL EXAMINATION: GENERAL: Well-appearing, well-nourished and in no acute distress. HEAD: Atraumatic, normocephalic. EYES: Pupils equal round and reactive to light, extraocular movements intact, conjunctiva are normal. ENT: Nares patent, oropharynx clear without exudates. Moist mucous membranes. NECK: Normal range of motion, supple without lymphadenopathy LUNGS: Breath sounds clear to auscultation bilaterally and equal. No wheezes rales or rhonchi. HEART: Regular rate and rhythm without murmurs ABDOMEN: Soft, nontender, nondistended abdomen. No guarding, no rebound. No masses appreciated. Female : deferred Musculoskeletal: Normal range of motion, no pitting or edema. No cyanosis. NEUROLOGICAL: Cranial nerves grossly intact. Normal speech, normal gait. Normal sensory, motor exams PSYCH: Normal mood, normal affect. SKIN: 2 surgical incisions of the upper abdomen are well-healed, the incision of the umbilicus does have erythema around the umbilicus, there is a small pimple which was opened and drained, small thick amount of pus was removed Dictation was performed using Dragon voice recognition software Physical Exam - Vital signs Vitals: Temp Pulse Resp BP Pulse Ox 98.2 F 115 H 16 149/105 H 98 02/15/17 08:00 02/15/17 08:00 02/15/17 08:00 02/15/17 08:00 02/15/17 08:00 Course - Re-evaluation Re-evalutation: 02/15/17 09:04 The area was explored small amount of pus was taken out, I did clean the incision, I believe the patient has a superficial wound, I did explain to her that if she has any worsening symptoms she must return immediately. Patient is very happy with this plan After performing a Medical Screening Examination, I estimate there is LOW risk for OPEN FRACTURE, COMPARTMENT SYNDROME, TENDON RUPTURE, ACUTE NEUROVASCULAR INJURY, or RETAINED FOREIGN BODY, thus I consider the discharge disposition reasonable. Also, there is no evidence or peritonitis, sepsis, or toxicity. I have reevaluated this patient multiple times and no significant life threatening changes are noted. The patient and I have discussed the diagnosis and risks, and we agree with discharging home with close follow-up with the understanding that symptoms and presentations can change. We also discussed returning to the Emergency Department immediately if new or worsening symptoms occur. We have discussed the symptoms which are most concerning (e.g., changing or worsening pain, fever, numbness, weakness, cool or painful digits) that necessitate immediate return. - Vital Signs Vital signs: Temp Pulse Resp BP Pulse Ox 98.2 F 115 H 16 149/105 H 98 02/15/17 08:00 02/15/17 08:00 02/15/17 08:00 02/15/17 08:00 02/15/17 08:00 Discharge - Discharge Clinical Impression: Superficial incisional surgical site infection Qualifiers: Encounter type: initial encounter Qualified Code(s): T81.4XXA - Infection following a procedure, initial encounter Condition: Stable Disposition: HOME, SELF-CARE Instructions: Wound Infection ([facility]) Prescriptions: Cephalexin Monohydrate [Keflex 500 mg Capsule] 500 mg PO Q6H 10 Days capsule Sulfamethoxazole/Trimethoprim [Bactrim Ds Tablet] 2 each PO BID #40 tablet Referrals: ALEX ELDER MD [Primary Care Provider] - Follow up in 3-5 days
[2017-02-15 09:14] VITALS: BP 116/76
== END 2017-02-15 09:14 | disposition home or self-care (01) ==
LOC: ER 07:56
DX: T81.4XXA Infection following a procedure, initial encounter (principal); R23.8 Other skin changes; Y83.6 Removal of other organ (partial) (total) as the cause of abnormal reaction of the patient, or of later complication, without mention of misadventure at the time of the procedure; Z90.49 Acquired absence of other specified parts of digestive tract
CPT/HCPCS: 99283

== ENCOUNTER → 2017-06-25 | Outpatient (CLI) | payer OTHER ==
[2017-06-25 08:28] LABS: ABSOLUTE EOSINOPHILS # (AUTO) 0.1 10^3/uL (0.0-0.6); ABSOLUTE LYMPHOCYTES (AUTO) 2.4 10^3/uL (0.5-4.7); ABSOLUTE MONOCYTES (AUTO) 0.5 10^3/uL (0.1-1.4); ABSOLUTE NEUT (AUTO) 3.5 10^3/uL (1.7-8.2); BASOPHILS % (AUTO) 0.3 % (0-2); EOSINOPHILS % (AUTO) 1.6 % (0-6); HEMATOCRIT 40.8 % (36.0-47.0); HEMOGLOBIN 13.8 g/dL (12.0-15.5); LYMPHOCYTES % (AUTO) 36.6 % (13-45); MEAN CORPUSCULAR HEMOGLOBIN 29.7 pg (27.0-33.4); MEAN CORPUSCULAR HGB CONC 33.9 g/dL (32.0-36.0); MEAN CORPUSCULAR VOLUME 88 fl (80-97); MONOCYTES % (AUTO) 7.9 % (3-13); PLATELET COUNT 324 10^3/uL (150-450); RED BLOOD COUNT 4.65 10^6/uL (3.72-5.28); RED CELL DISTRIBUTION WIDTH 13.5 % (11.5-14.0); SEGMENTED NEUTROPHILS % (AUTO) 53.6 % (42-78); TOTAL CELLS COUNTED % (AUTO) 100 %; WHITE BLOOD COUNT 6.6 10^3/uL (4.0-10.5)
[2017-06-25 08:51] LABS: ALANINE AMINOTRANSFERASE 25 U/L (9-52); ALKALINE PHOSPHATASE 89 U/L (38-126); ANION GAP 12 (5-19); ASPARTATE AMINO TRANSFERASE 17 U/L (14-36); BILIRUBIN,DIRECT 0.2 mg/dL (0.0-0.4); BILIRUBIN,TOTAL 0.2 mg/dL (0.2-1.3); BLOOD UREA NITROGEN 7 mg/dL (7-20); CALCIUM 10.1 mg/dL (8.4-10.2); CARBON DIOXIDE 28 mmol/L (22-30); CHLORIDE 105 mmol/L (98-107); CHOLESTEROL 201.72 mg/dL (0-200); GLUCOSE 103 mg/dL (75-110); IRON(TIBC) 54.3 ug/dL (37-170); POTASSIUM 5.2 mmol/L (3.6-5.0); SODIUM 144.8 mmol/L (137-145); TRIGLYCERIDES 88 mg/dL (<150)
[2017-06-25 09:02] LABS: DIRECT LDL 115 mg/dL (<100)
[2017-06-25 09:31] LABS: APPEARANCE,URINE CLEAR; BILIRUBIN,URINE NEGATIVE (NEGATIVE); COLOR,URINE YELLOW; GLUCOSE, URINE NEGATIVE (NEGATIVE); KETONES,URINE NEGATIVE (NEGATIVE); LEUKOCYTE ESTERASE,URINE NEGATIVE (NEGATIVE); NITRITE,URINE NEGATIVE (NEGATIVE); PROTEIN,URINE NEGATIVE (NEGATIVE); URINE SPECIFIC GRAVITY 1.018
[2017-06-29 09:01] LABS: HELICOBACTER PYLORI IGA AB <9.0 units (0.0-8.9); HELICOBACTER PYLORI IGG AB <0.80 (0.00-0.79); HELICOBACTER PYLORI IGM AB <9.0 units (0.0-8.9)
== END ==
LOC: OD 07:19
PROVIDERS: ATTEND Family Medicine
DX: E28.2 Polycystic ovarian syndrome (principal); Z71.3 Dietary counseling and surveillance; E61.1 Iron deficiency; R10.816 Epigastric abdominal tenderness
CPT/HCPCS: 36415; 80053; 80061; 81001; 82607; 83036; 83540; 83550; 85025; 86677

== ENCOUNTER 2017-07-14 21:31 | Emergency (ER) | payer OTHER ==
[2017-07-14 21:47] VITALS: BP 147/93
[2017-07-14] MEDS ORDERED: TRAMADOL HCL 50 MG TABLET PO ONE (22:10)
--- NOTE | 2017-07-14 22:14 | ER Document Report ---
ED Extremity Problem, Lower - General Chief Complaint: Allergic Reaction Stated Complaint: POSSIBLE ALLERGIC REACTION Time Seen by Provider: 07/14/17 22:08 Mode of Arrival: Ambulatory Information source: Patient TRAVEL OUTSIDE OF THE [place] IN LAST 30 DAYS: No - HPI Patient complains to provider of: Injury Location: Ankle, Foot Notes: Patient is here with complaints of right foot and ankle pain. She states that a few days ago she was walking up the steps and twisted her right foot and ankle. She has been using crutches since that time and today while using her crutches they slipped on the wet spot on the steps and she reinjured the right foot and ankle again. She denies pain in the lateral aspect of the right foot and ankle. She denies striking her head. No numbness, tingling, weakness. No fever. No nausea, vomiting, diarrhea. No rash. No chest pain or shortness of breath. She denies any other injuries or complaints. Pain is worse with touching the area as well as ambulation, better with rest. Patient denies any other complaints at this time. - Related Data Allergies/Adverse Reactions: No Known Allergies Allergy (Verified 02/15/17 08:03) Past Medical History - Social History Smoking Status: Unknown if Ever Smoked Family History: Reviewed & Not Pertinent Patient has suicidal ideation: No Patient has homicidal ideation: No - Past Medical History Cardiac Medical History: Denies: Hx Congestive Heart Failure, Hx Coronary Artery Disease, Hx Heart Attack, Hx Hypertension Pulmonary Medical History: Denies: Hx Asthma, Hx Bronchitis, Hx COPD, Hx Pneumonia, Hx Tuberculosis Neurological Medical History: Denies: Hx Seizures Endocrine Medical History: Denies: Hx Diabetes Mellitus Type 1, Hx Diabetes Mellitus Type 2 Renal/ Medical History: Denies: Hx End Stage Renal Disease, Hx Kidney Stones, Hx Peritoneal Dialysis GI Medical History: Denies: Hx Cirrhosis, Hx Gastroesophageal Reflux Disease, Hx Ulcer Musculoskeltal Medical History: Denies Hx Arthritis, Denies Hx Multiple Sclerosis Psychiatric Medical History: Denies: Hx Bipolar Disorder, Hx Depression, Hx Schizophrenia Past Surgical History: Reports: Hx Cholecystectomy, Hx Tonsillectomy, Hx Urinary Tract Surgery - Urethral stretching - Immunizations Hx Diphtheria, Pertussis, Tetanus Vaccination: Yes Review of Systems - Review of Systems -: Yes All other systems reviewed and negative Physical Exam - Vital signs Vitals: Temp Pulse Resp BP Pulse Ox 99.1 F 93 18 147/93 H 98 07/14/17 21:44 07/14/17 21:44 07/14/17 21:44 07/14/17 21:44 07/14/17 21:44 - Notes Notes: GENERAL: alert, cooperative, nontoxic, no distress. HEAD: normocephalic, atraumatic EYES: conjunctiva pink without discharge, no external redness or swelling. EARS: no external swelling, no external redness NOSE: atraumatic, no external swelling MOUTH/THROAT: mucous membranes moist and pink NECK: soft, supple, full range of motion, no meningismus. CHEST: no distress, lungs clear and equal throughout. No wheezing, rales, rhonchi. CARDIAC: regular rate and rhythm, no murmur, normal capillary refill, normal pulses. BACK: full range of motion, no CVA tenderness. EXTREMITIES: Patient noted to have swelling and tenderness to the lateral aspect of the right foot and or lateral malleolus. Limited range of motion of the ankle secondary to pain. Normal pulse and sensation. Normal cap refill. Achilles is intact with a normal Cisneros's test. No proximal tib-fib tenderness. Knee exam is unremarkable. Skin is intact. Compartments are soft. NEURO: alert and oriented 3, no focal deficits, full range of motion of all extremities. PYSCH: appropriate mood, affect. Patient is cooperative. SKIN: pink, warm, dry, no rash. Course - Re-evaluation Re-evalutation: 07/14/17 22:11 Patient is nontoxic appearing with stable vitals. She is here with complaints of right foot and ankle pain. She twisted it a few days ago going up the steps and then while using her crutches today that she slipped and reinjured it again. She is noted to have swelling and tenderness lateral aspect of the right foot and lateral ankle. No redness or signs of infection. X-rays of the right foot and ankle show no acute fracture. Patient has crutches of her own at this time. She is currently already on an anti-inflammatory medication for chronic left knee issues. This point the patient will be given a dose of tramadol and I will write her a prescription for tramadol that she can take as needed for pain. She will be instructed to rest, ice, elevate. Follow-up if not better in 1 week, sooner for worsening pain, fever, numbness, tingling, weakness, redness, any further concerns. The patient is noted to have elevated blood pressure during today's emergency department visit. The patient was informed of this finding. The patient was instructed that this may be related to pre-hypertension and requires further evaluation with a primary care provider. The patient has no hypertensive symptoms at this time. The patient's emergency department workup and current diagnosis were explained to the patient and or family. Follow-up instructions were provided. Medications if prescribed were discussed. Instructions for when to return to the emergency department including specific worrisome symptoms were discussed with the patient and/or family. - Vital Signs Vital signs: Temp Pulse Resp BP Pulse Ox 99.1 F 93 18 147/93 H 98 07/14/17 21:44 07/14/17 21:44 07/14/17 21:44 07/14/17 21:44 07/14/17 21:44 - Diagnostic Test Radiology reviewed: Image reviewed, Reports reviewed - Right foot and ankle negative for acute fracture Procedures - Immobilization Right foot and ankle Pre-Proc Neuro Vasc Exam: Normal Immobilizer type: Keith wrap, Ankle stirrup Performed by: PCT Post-Proc Neuro Vasc Exam: Normal Alignment checked and good: Yes Discharge - Discharge Clinical Impression: Strain of right ankle and foot Qualifiers: Encounter type: initial encounter Qualified Code(s): S96.911A - Strain of unspecified muscle and tendon at ankle and foot level, right foot, initial encounter Condition: Stable Disposition: HOME, SELF-CARE Instructions: Exercises for the Foot Muscles ([facility]), Ankle Exercise Program ([facility] ), Ankle Stirrup Splint (OM), Sprained Ankle (OM) Additional Instructions: Take medication as prescribed. Wear splint and Ketih wrap as needed for comfort. Use her crutches as needed for comfort. Rest, ice, elevate. Follow-up if not better in 1 week, sooner for worsening pain, fever, redness, numbness, tingling, weakness, any further concerns. Your blood pressure was elevated during today's visit. Have this rechecked with your doctor. Prescriptions: Tramadol HCl [Ultram 50 mg Tablet] 50 mg PO Q6HP PRN #12 tablet PRN Reason: Forms: Elevated Blood Pressure, Smoking Cessation Education Referrals: ALEX ELDER MD [Primary Care Provider] - Follow up as needed
[2017-07-14] MEDS ORDERED: FAMOTIDINE 20 MG TABLET PO ONE (22:29)
[2017-07-14] MEDS ORDERED: PREDNISONE 20 MG TABLET PO ONE (22:29)
[2017-07-14] MEDS ORDERED: DIPHENHYDRAMINE HCL 25 MG CAPSULE PO ONE (22:29)
--- NOTE | 2017-07-14 22:32 | ER Document Report ---
ED Allergic Reaction - General Chief Complaint: Allergic Reaction Stated Complaint: POSSIBLE ALLERGIC REACTION Time Seen by Provider: 07/14/17 22:08 Mode of Arrival: Ambulatory Information source: Patient TRAVEL OUTSIDE OF THE [place] IN LAST 30 DAYS: No - HPI Patient complains to provider of: possible allergic reaction Notes: Patient is here with complaints of itching and rash. She states that this started earlier this evening. Started with a lot of itching in her head and then rash around the lower abdomen. Rash has since spread to her arms. She then noticed that the left side of her upper and lower lip are somewhat swollen. She denies any tongue swelling. She denies any difficulty breathing or swelling. No stridor. No wheezing. She denies fever. She denies nausea, vomiting, diarrhea. She denies any new soaps, detergents, lotions, medications. She is not on an ALFREDO inhibitor. She denies any known sick contacts. She denies any other complaints at this time. She took 25 mg of Benadryl a few hours ago with no significant change in her symptoms. Patient does state that she has had symptoms similar to this approximately 10 years ago that also involved joint swelling, she was told to be checked for RA and lupus, she states that she was checked for these things and the tests were negative. - Related Data Allergies/Adverse Reactions: No Known Allergies Allergy (Verified 02/15/17 08:03) Past Medical History - Social History Smoking Status: Unknown if Ever Smoked Family History: Reviewed & Not Pertinent Patient has suicidal ideation: No Patient has homicidal ideation: No - Past Medical History Cardiac Medical History: Denies: Hx Congestive Heart Failure, Hx Coronary Artery Disease, Hx Heart Attack, Hx Hypertension Pulmonary Medical History: Denies: Hx Asthma, Hx Bronchitis, Hx COPD, Hx Pneumonia, Hx Tuberculosis Neurological Medical History: Denies: Hx Seizures Endocrine Medical History: Denies: Hx Diabetes Mellitus Type 1, Hx Diabetes Mellitus Type 2 Renal/ Medical History: Denies: Hx End Stage Renal Disease, Hx Kidney Stones, Hx Peritoneal Dialysis GI Medical History: Denies: Hx Cirrhosis, Hx Gastroesophageal Reflux Disease, Hx Ulcer Musculoskeltal Medical History: Denies Hx Arthritis, Denies Hx Multiple Sclerosis Psychiatric Medical History: Denies: Hx Bipolar Disorder, Hx Depression, Hx Schizophrenia Past Surgical History: Reports: Hx Cholecystectomy, Hx Tonsillectomy, Hx Urinary Tract Surgery - Urethral stretching - Immunizations Hx Diphtheria, Pertussis, Tetanus Vaccination: Yes Review of Systems - Review of Systems -: Yes All other systems reviewed and negative Physical Exam - Vital signs Vitals: Temp Pulse Resp BP Pulse Ox 99.1 F 93 18 147/93 H 98 07/14/17 21:44 07/14/17 21:44 07/14/17 21:44 07/14/17 21:44 07/14/17 21:44 - Notes Notes: GENERAL: alert, cooperative, nontoxic, no distress. HEAD: normocephalic, atraumatic EYES: conjunctiva pink without discharge, no external redness or swelling. EARS: no external swelling, no external redness NOSE: atraumatic, no external swelling MOUTH/THROAT: mucous membranes moist and pink, posterior pharynx without erythema, swelling, exudate. No trismus or drooling. Mild swelling noted to the left aspect of the upper and lower lip. No tongue swelling. No trismus or drooling. No stridor. NECK: soft, supple, full range of motion, no meningismus. CHEST: no distress, lungs clear and equal throughout. No wheezing, rales, rhonchi. CARDIAC: regular rate and rhythm, no murmur, normal capillary refill, normal pulses. No peripheral edema noted. ABDOMEN: Soft, nontender. BACK: full range of motion, no CVA tenderness. EXTREMITIES: full range of motion of all extremities. No redness, no swelling. NEURO: alert and oriented x 3, no focal deficits, full range of motion of all extremities. PYSCH: appropriate mood, affect. Patient is cooperative. SKIN: pink, warm, dry, red macular rash as well as urticarial rash to the arms, lower abdomen and back. No vesicles. No petechiae. Course - Re-evaluation Re-evalutation: 07/14/17 23:30 Patient remains unchanged at this time. She has been given prednisone, Pepcid, Benadryl. I have discussed the case with Dr. Morfin. We will give a dose of epinephrine and continue to monitor. The patient has not worsened at all but has not improved. 07/15/17 00:22 Patient was given epinephrine and seems to be doing somewhat better at this time. The upper lip swelling has improved some, there is been no change in the lower lips with him. Patient states that her itching seems to be feeling better. Rash has improved. She is in no respiratory distress. She certainly has not worsened at all during her visit here. She has been observed here for about 2 hours and 45 minutes. I did offer to keep her here for further observation versus going ahead to discharge her home since she has not worsened in any way. Her and her were both comfortable with going home at this time. We will discharge the patient home on prednisone and Pepcid with instructions to take Benadryl every 6 hours. Follow-up with her primary care doctor at the next available appointment for reevaluation and further evaluation. Follow-up sooner/return the emergency department for worsening symptoms, high fever, persistent vomiting, worsening lip swelling, tongue swelling, difficulty breathing or swelling, or for any further concerns. Is not completely clear as to the source of her lip swelling or urticarial rash. It is possible that it could be an allergic reaction. Other differentials would include an autoimmune cause versus idiopathic urticaria. Patient tells me that she has been worked up in the past for autoimmune diseases that were negative. Did inform her that she should discuss this with her primary care doctor as they may want to reevaluate her for this again. The patient is noted to have elevated blood pressure during today's emergency department visit. The patient was informed of this finding. The patient was instructed that this may be related to pre-hypertension and requires further evaluation with a primary care provider. The patient has no hypertensive symptoms at this time. The patient's emergency department workup and current diagnosis were explained to the patient and or family. Follow-up instructions were provided. Medications if prescribed were discussed. Instructions for when to return to the emergency department including specific worrisome symptoms were discussed with the patient and/or family. - Vital Signs Vital signs: Temp Pulse Resp BP Pulse Ox 99.1 F 93 18 147/93 H 98 07/14/17 21:44 07/14/17 21:44 07/14/17 21:44 07/14/17 21:44 07/14/17 21:44 Discharge - Discharge Clinical Impression: Urticaria, Lip swelling Condition: Stable Disposition: HOME, SELF-CARE Instructions: Acute Urticaria ([facility]), Angioedema ([facility]) Additional Instructions: Take medications as prescribed. Take [id number] Benadryl every 6 hours as well. Follow-up with your doctor in the next 24-48 hours for reevaluation. Return the emergency department immediately for worsening swelling, difficulty breathing or swelling, fever, persistent vomiting, worsening rash, or for any further concerns. Your blood pressure was elevated during today's visit. Have this rechecked with your doctor. Prescriptions: Tramadol HCl [Ultram 50 mg Tablet] 50 mg PO Q6HP PRN #12 tablet PRN Reason: Famotidine [Pepcid 20 mg Tablet] 20 mg PO BID #30 tablet Prednisone [Deltasone 20 mg Tablet] 3 tab PO DAILY 5 Days tablet Forms: Elevated Blood Pressure, Smoking Cessation Education Referrals: ALEX ELDER MD [Primary Care Provider] - Follow up as needed
[2017-07-14] MEDS ORDERED: EPINEPHRINE INJ/PF 1 MG/1 ML AMPULE IM ONE (23:30)
== END 2017-07-15 00:40 | disposition home or self-care (01) ==
LOC: ER 21:31
DX: L50.9 Urticaria, unspecified (principal); R22.0 Localized swelling, mass and lump, head
CPT/HCPCS: 99283; 96372; J0171; J7512; L1902; L4350

== ENCOUNTER 2018-04-07 06:16 | Emergency (ER) | payer OTHER ==
[2018-04-07] MEDS ORDERED: ONDANSETRON HCL INJ/PF 4 MG/2 ML SDV IV ONE (06:54)
[2018-04-07] MEDS ORDERED: NORMAL SALINE 1000 ML 1,000 ML IV ONE ×2 (06:54→09:16)
[2018-04-07] MEDS ORDERED: PANTOPRAZOLE SODIUM 40 MG VIAL IV ONE (06:54)
--- NOTE | 2018-04-07 07:06 | ER Document Report ---
ED General - General Chief Complaint: Vomiting Stated Complaint: VOMITING BLOOD Time Seen by Provider: 04/07/18 06:47 Primary Care Provider: ALEX ELDER MD [Primary Care Provider] - Follow up as needed Notes: 32-year-old female presents to the emerge department with nausea and vomiting. The patient states she awoke at 3 AM and started vomiting. States she vomited so much that she had some blood-tinged emesis. She complains of some lower abdominal pain. Some sore throat from the vomiting. Denies fever or chills. Does have a history of diverticulitis and stated the last time she began vomiting like this she had diverticulitis. Denies chest pain denies shortness of breath. Denies black bloody or tarry stools denies diarrhea or constipation. TRAVEL OUTSIDE OF THE [place] IN LAST 30 DAYS: No - Related Data Allergies/Adverse Reactions: No Known Allergies Allergy (Verified 02/15/17 08:03) Past Medical History - Social History Smoking Status: Unknown if Ever Smoked Family History: Reviewed & Not Pertinent - Past Medical History Cardiac Medical History: Denies: Hx Congestive Heart Failure, Hx Coronary Artery Disease, Hx Heart Attack, Hx Hypertension Pulmonary Medical History: Denies: Hx Asthma, Hx Bronchitis, Hx COPD, Hx Pneumonia, Hx Tuberculosis Neurological Medical History: Denies: Hx Seizures Endocrine Medical History: Denies: Hx Diabetes Mellitus Type 1, Hx Diabetes Mellitus Type 2 Renal/ Medical History: Denies: Hx End Stage Renal Disease, Hx Kidney Stones, Hx Peritoneal Dialysis GI Medical History: Denies: Hx Cirrhosis, Hx Gastroesophageal Reflux Disease, Hx Ulcer Musculoskeletal Medical History: Denies Hx Arthritis, Denies Hx Multiple Sclerosis Psychiatric Medical History: Denies: Hx Bipolar Disorder, Hx Depression, Hx Schizophrenia Past Surgical History: Reports: Hx Cholecystectomy, Hx Tonsillectomy, Hx Urinary Tract Surgery - Urethral stretching - Immunizations Hx Diphtheria, Pertussis, Tetanus Vaccination: Yes Review of Systems - Review of Systems EENT: Throat pain Cardiovascular: denies: Chest pain, Dyspnea Gastrointestinal: Abdominal pain, Nausea, Vomiting, Blood in vomit. denies: Diarrhea, Constipation Skin: denies: Rash Neurological/Psychological: denies: Headaches -: Yes All other systems reviewed and negative Physical Exam - Vital signs Vitals: Temp Pulse Resp BP Pulse Ox 98.6 F 126 H 19 145/101 H 96 04/07/18 06:23 04/07/18 06:23 04/07/18 06:23 04/07/18 06:23 04/07/18 06:23 - Notes Notes: GENERAL_APPEARANCE: well_nourished, alert, cooperative VITALS: reviewed, see vital signs table. HEAD: no_swelling\tenderness on the head. EYES: PERRL, EOMI, conjunctiva_clear. NOSE: no_nasal_discharge. MOUTH: (-)decreased moisture. THROAT: no_tonsilar_inflammation, no_airway_obstruction. no_lymphadenopathy NECK: supple, no_neck_tenderness, (-)thyromegaly. BACK: no_back_tenderness. CHEST_WALL: no_chest_tenderness. LUNGS: no_wheezing, no_rales, no_rhonchi, (-)accessory muscle use, good air exchange bilateral. HEART: normal_rate, normal_rhythm, normal_S1, normal_S2, (-)S3, (-)S4, no_mu rmur, no_rub. ABDOMEN: normal_BS, soft, slight epigastric and left lower quadrant_abd_tenderness, (-)guarding, (-)rebound, no_organomegaly, no_abd_masses. EXTREMITIES: good pulses in all_extremities, no_swelling\tenderness in the extremities, no_edema. SKIN: warm, dry, good_color, no_rash. MENTAL_STATUS: speech_clear, oriented_X_3, normal_affect, responds_appropriately to questions. Course - Re-evaluation Re-evalutation: 04/07/18 07:06 32-year-old female presents with nausea vomiting. Patient will be given IV fluids anti-medics. We will CT scan her abdomen for diverticulitis check electrolytes. Likely the blood-tinged emesis was due to gastritis or mild inflammation from the repetitive vomiting. 04/07/18 09:17 CT scan showed diverticulosis but no diverticulitis or obstruction. Lab work showed a mild leukocytosis but again this is likely due to viral illness or acute phase reactant due to the vomiting. She is feeling better we have given her GI cocktail proton pump inhibitors Zofran. We will give her another liter of fluid she still around 110 for a pulse rate. We will try to get it down likely this is due to dehydration. She is not significantly anemic. She has not thrown up since he been here. Her repeat abdominal exam is soft and supple without rebound or guarding. We will discharge the patient home after the additional liter of fluid with Pepcid Carafate and Zofran. Follow-up with her doctor. Any additional episodes return to the ER - Vital Signs Vital signs: Temp Pulse Resp BP Pulse Ox 98.6 F 126 H 19 133/93 H 95 04/07/18 06:23 04/07/18 06:23 04/07/18 08:16 04/07/18 08:16 04/07/18 08:16 - Laboratory Result Diagrams: 04/07/18 06:55 04/07/18 06:55 Laboratory results interpreted by me: 04/07/18 04/07/18 04/07/18 06:55 06:55 07:27 WBC 13.4 H Seg Neutrophils % 90.6 H Lymphocytes % 5.7 L Absolute Neutrophils 12.1 H Glucose 126 H Urine Ketones 20 H Urine Urobilinogen 4.0 H Discharge - Discharge Clinical Impression: Gastritis Qualifiers: Gastritis type: unspecified gastritis Chronicity: acute Gastritis bleeding: with bleeding Qualified Code(s): K29.01 - Acute gastritis with bleeding Condition: Good Disposition: HOME, SELF-CARE Instructions: Antinausea Medication ([facility]), Gastritis ([facility]) Additional Instructions: [place] diet. Follow-up with your family doctor if this continues may need gastroenterology referral. Take the antacids as directed. Avoid any alcohol. Prescriptions: Famotidine [Pepcid 40 mg Tablet] 40 mg PO QHS #30 tablet Ondansetron [Zofran Odt 4 mg Tablet] 1 - 2 tab PO Q4H PRN #15 tab.rapdis PRN Reason: For Nausea/Vomiting Sucralfate [Carafate 1 gm Tablet] 1 gm PO ACHS #30 tablet Referrals: ALEX ELDER MD [Primary Care Provider] - Follow up as needed
[2018-04-07 07:30] LABS: ALANINE AMINOTRANSFERASE 33 U/L (9-52); ALBUMIN 4.1 g/dL (3.5-5.0); ALKALINE PHOSPHATASE 113 U/L (38-126); ANION GAP 11 (5-19); ASPARTATE AMINO TRANSFERASE 26 U/L (14-36); BILIRUBIN,DIRECT 0.2 mg/dL (0.0-0.4); BILIRUBIN,TOTAL 0.6 mg/dL (0.2-1.3); BLOOD UREA NITROGEN 8 mg/dL (7-20); CALCIUM 9.6 mg/dL (8.4-10.2); CARBON DIOXIDE 23 mmol/L (22-30); CHLORIDE 106 mmol/L (98-107); GLUCOSE 126 mg/dL (75-110); LIPASE 73.6 U/L (23-300); POTASSIUM 4.5 mmol/L (3.6-5.0); SODIUM 140.2 mmol/L (137-145); TOTAL PROTEIN 7.1 g/dL (6.3-8.2)
[2018-04-07 07:43] LABS: ABSOLUTE LYMPHOCYTES (AUTO) 0.8 10^3/uL (0.5-4.7); ABSOLUTE MONOCYTES (AUTO) 0.5 10^3/uL (0.1-1.4); ABSOLUTE NEUT (AUTO) 12.1 10^3/uL (1.7-8.2); BASOPHILS % (AUTO) 0.1 % (0-2); EOSINOPHILS % (AUTO) 0.1 % (0-6); HEMATOCRIT 39.3 % (36.0-47.0); HEMOGLOBIN 13.2 g/dL (12.0-15.5); LYMPHOCYTES % (AUTO) 5.7 % (13-45); MEAN CORPUSCULAR HEMOGLOBIN 29.6 pg (27.0-33.4); MEAN CORPUSCULAR HGB CONC 33.6 g/dL (32.0-36.0); MEAN CORPUSCULAR VOLUME 88 fl (80-97); MONOCYTES % (AUTO) 3.5 % (3-13); PLATELET COUNT 319 10^3/uL (150-450); RED BLOOD COUNT 4.46 10^6/uL (3.72-5.28); RED CELL DISTRIBUTION WIDTH 13.8 % (11.5-14.0); SEGMENTED NEUTROPHILS % (AUTO) 90.6 % (42-78); TOTAL CELLS COUNTED % (AUTO) 100 %; WHITE BLOOD COUNT 13.4 10^3/uL (4.0-10.5)
[2018-04-07 07:51] LABS: APPEARANCE,URINE SLIGHTLY-CLOUDY; BILIRUBIN,URINE NEGATIVE (NEGATIVE); COLOR,URINE YELLOW; GLUCOSE, URINE NEGATIVE (NEGATIVE); KETONES,URINE 20 mg/dL (NEGATIVE); LEUKOCYTE ESTERASE,URINE NEGATIVE (NEGATIVE); NITRITE,URINE NEGATIVE (NEGATIVE); PROTEIN,URINE NEGATIVE (NEGATIVE); URINE SPECIFIC GRAVITY 1.019
--- NOTE | 2018-04-07 08:28 | RADIOLOGY REPORT (SQ) ---
EXAM DESCRIPTION: CT ABD/PELVIS NO ORAL OR IV COMPLETED DATE/TIME: 04/07/2018 8:16 am REASON FOR STUDY: ABD Pain COMPARISON: 07/10/2016. TECHNIQUE: CT scan of the abdomen and pelvis performed without intravenous or oral contrast. Images reviewed with lung, soft tissue, and bone windows. Reconstructed coronal and sagittal MPR images revi ewed. All images stored on PACS. All CT scanners at this facility use dose modulation, iterative reconstruction, and/or weight based d osing when appropriate to reduce radiation dose to as low as reasonably achievable (ALARA). [facility]: Dose Right [facility]: CareDose [facility]: Dose Right [facility]: Teradose 4D [facility]: Smart DGTS RADIATION DOSE: CT Rad equipment meets quality standard of care and radiation dose reduction techniq ues were employed. CTDIvol: 19.1 mGy. DLP: 1205 mGy-cm.mGy. LIMITATIONS: None. FINDINGS: LOWER CHEST: No significant findings. No nodules or infiltrates. NON-CONTRASTED LIVER, SPLEEN, ADRENALS: Evaluation limited by lack of IV contrast. No identified sign ificant masses. PANCREAS: No masses. No peripancreatic inflammatory changes. GALLBLADDER: Surgically absent. There are a few residual gallstones located adjacent to the posterio r right lobe of the liver. RIGHT KIDNEY AND URETER: No suspicious masses. Assessment limited by lack of IV contrast. No signif icant calcifications. No hydronephrosis or hydroureter. LEFT KIDNEY AND URETER: No suspicious masses. Assessment limited by lack of IV contrast. No signifi cant calcifications. No hydronephrosis or hydroureter. AORTA AND RETROPERITONEUM: No aneurysm. No retroperitoneal masses or adenopathy. BOWEL AND PERITONEAL CAVITY: Colonic diverticulosis. No obvious masses or inflammatory changes. No f ree fluid. APPENDIX: Normal. PELVIS, BLADDER, AND ABDOMINAL WALL:No abnormal masses. No free fluid. Bladder normal. BONES: No significant findings. OTHER: No other significant finding. IMPRESSION: 1. COLONIC DIVERTICULOSIS. NO CT FINDINGS OF ACUTE DIVERTICULITIS. 2. POST CHOLECYSTECTOMY. A FEW RESIDUAL GALLSTONES ARE PRESENT ADJACENT TO THE POSTERIOR RIGHT LOBE OF THE LIVER. 3. NO OTHER SIGNIFICANT OR ACUTE PROCESS IN THE ABDOMEN OR PELVIS. COMMENT: Quality ID # [id number]: Final reports with documentation of one or more dose reduction techniques (e.g., Automated exposure control, adjustment of the mA and/or kV according to patient size, use of iterative reconstruction technique) TECHNICAL DOCUMENTATION: JOB ID: [id number] [employer]- All Rights Reserved Reading location - IP/workstation name: [email or web address]
[2018-04-07] MEDS ORDERED: MAG HYDROX/AL HYDROX/SIMETH SUSP 30 ML UDCUP PO ONE (09:16)
[2018-04-07] MEDS ORDERED: METOCLOPRAMIDE HCL ORAL SOLN 10 MG/10 ML UDCUP PO ONE (09:16)
[2018-04-07] MEDS ORDERED: LIDOCAINE 2% VISCOUS SOLN 20 ML UDCUP PO ONE (09:16)
[2018-04-07 10:59] VITALS: BP 134/77
== END 2018-04-07 11:05 | disposition home or self-care (01) ==
LOC: ER 06:16
DX: K29.01 Acute gastritis with bleeding (principal); R11.2 Nausea with vomiting, unspecified; Z90.49 Acquired absence of other specified parts of digestive tract
CPT/HCPCS: 99284; 96361; 96374; 96375; 36415; 83690; 85025; 81025; 80053; 81001; 74176; J3490; S0164; J2405; J7030

== ENCOUNTER → 2018-09-30 | Outpatient (CLI) | payer SELFPAY ==
[2018-09-30 07:42] LABS: ABSOLUTE EOSINOPHILS # (AUTO) 0.2 10^3/uL (0.0-0.6); ABSOLUTE LYMPHOCYTES (AUTO) 2.6 10^3/uL (0.5-4.7); ABSOLUTE MONOCYTES (AUTO) 0.6 10^3/uL (0.1-1.4); ABSOLUTE NEUT (AUTO) 4.6 10^3/uL (1.7-8.2); BASOPHILS % (AUTO) 0.3 % (0-2); HEMATOCRIT 39.6 % (36.0-47.0); HEMOGLOBIN 13.5 g/dL (12.0-15.5); LYMPHOCYTES % (AUTO) 32.7 % (13-45); MEAN CORPUSCULAR HEMOGLOBIN 29.8 pg (27.0-33.4); MEAN CORPUSCULAR HGB CONC 34.1 g/dL (32.0-36.0); MEAN CORPUSCULAR VOLUME 87 fl (80-97); MONOCYTES % (AUTO) 7.5 % (3-13); PLATELET COUNT 388 10^3/uL (150-450); RED BLOOD COUNT 4.53 10^6/uL (3.72-5.28); RED CELL DISTRIBUTION WIDTH 14.6 % (11.5-14.0); SEGMENTED NEUTROPHILS % (AUTO) 57.5 % (42-78); TOTAL CELLS COUNTED % (AUTO) 100 %
[2018-09-30 07:59] LABS: ALBUMIN 4.1 g/dL (3.5-5.0); ALKALINE PHOSPHATASE 101 U/L (38-126); ANION GAP 10 (5-19); ASPARTATE AMINO TRANSFERASE 24 U/L (14-36); BILIRUBIN,DIRECT 0.3 mg/dL (0.0-0.4); BILIRUBIN,TOTAL 0.5 mg/dL (0.2-1.3); BLOOD UREA NITROGEN 8 mg/dL (7-20); CALCIUM 9.9 mg/dL (8.4-10.2); CARBON DIOXIDE 25 mmol/L (22-30); CHLORIDE 106 mmol/L (98-107); CHOLESTEROL 186.77 mg/dL (0-200); GLUCOSE 110 mg/dL (75-110); IRON(TIBC) 66.3 ug/dL (37-170); POTASSIUM 4.6 mmol/L (3.6-5.0); TOTAL PROTEIN 7.3 g/dL (6.3-8.2); TRIGLYCERIDES 172 mg/dL (<150)
[2018-09-30 08:10] LABS: DIRECT LDL 131 mg/dL (<100)
[2018-09-30 08:11] LABS: VLDL CHOLESTEROL 34.4 mg/dL (10-31)
== END ==
LOC: OD 07:06
PROVIDERS: ATTEND Family Medicine
DX: E28.2 Polycystic ovarian syndrome (principal); E61.1 Iron deficiency; N92.1 Excessive and frequent menstruation with irregular cycle; R00.0 Tachycardia, unspecified
CPT/HCPCS: 36415; 80053; 80061; 83036; 83540; 83550; 84146; 84439; 84702; 85025

== ENCOUNTER → 2018-10-02 | Outpatient (CLI) | payer SELFPAY ==
--- NOTE | 2018-10-03 10:12 | EKG REPORT ---
SEVERITY:- BORDERLINE ECG - SINUS TACHYCARDIA INFERIOR Q WAVES, PROBABLY NORMAL VARIATION : Confirmed by: José Miguel Talbert 03-Oct-2018 10:11:51
== END ==
LOC: OD 13:25
PROVIDERS: ATTEND Family Medicine
DX: R00.0 Tachycardia, unspecified (principal)
CPT/HCPCS: 93005; 93010

== ENCOUNTER → 2018-10-09 | Outpatient (CLI) | payer OTHER ==
--- NOTE | 2018-10-10 13:50 | RADIOLOGY REPORT (SQ) ---
EXAM DESCRIPTION: MRI HEAD WITHOUT COMPLETED DATE/TIME: 10/09/2018 8:39 pm REASON FOR STUDY: G44.85 PRIMARY STABBING HEADACHE G44.85 PRIMARY STABBING HEADACHE COMPARISON: None. TECHNIQUE: Multiplanar imaging includes non-contrasted T1, T2, FLAIR, and diffusion with ADC map seq uences. Images stored on PACS. LIMITATIONS: None. FINDINGS: ANATOMY: No anomalies. Normal vascular flow voids. Pituitary fossa normal. CSF SPACES: Normal in size and contour. No hemorrhage. CEREBRUM: Sulci and gyri normal in size and contour. Normal white matter signal on FLAIR imaging. No evidence of hemorrhage, mass, or extraaxial fluid collection. POSTERIOR FOSSA: No signal alteration. No hemorrhage. No edema, masses or mass effect. Internal tara tory canals, cerebello-pontine angles, mastoids normal. DIFFUSION IMAGING: Negative for acute or sub-acute infarction. ORBITS: No masses. Globes normal. PARANASAL SINUSES: No fluid levels. Mucosa normal. OTHER: No other significant finding. IMPRESSION: NORMAL MRI OF THE BRAIN WITHOUT INTRAVENOUS GADOLINIUM CONTRAST. EVIDENCE OF ACUTE STROKE: NO. TECHNICAL DOCUMENTATION: JOB ID: [id number]- All Rights Reserved Reading location - IP/workstation name: [email or web address]
== END ==
LOC: RAD 18:38
PROVIDERS: ATTEND Family Medicine
DX: G44.85 Primary stabbing headache (principal)
CPT/HCPCS: 70551

== ENCOUNTER → 2018-10-21 | Outpatient (CLI) | payer OTHER ==
--- NOTE | 2018-10-22 09:13 | RADIOLOGY REPORT (SQ) ---
EXAM DESCRIPTION: U/S NON-OB PELVIS TV W/O DOP COMPLETED DATE/TIME: 10/21/2018 5:22 pm REASON FOR STUDY: E28.2 POLYCYSTIC OVARIAN SYNDROME E28.2 POLYCYSTIC OVARIAN SYNDROME COMPARISON: 06/24/2013 TECHNIQUE: Dynamic and static grayscale images acquired of the pelvis via transabdominal and transva ginal approach and recorded on PACS. Additional selected color Doppler and spectral images recorded. LIMITATIONS: Overlying bowel gas. FINDINGS: UTERUS: Contour normal. No mass. ENDOMETRIAL STRIPE: No focal or generalized thickening. No masses. CERVIX: No nabothian cysts. RIGHT OVARY AND DOPPLER: Ovary not visualized. LEFT OVARY AND DOPPLER: Ovary not visualized. FREE FLUID: None noted. OTHER: No other significant finding. IMPRESSION: Normal as visualized. TECHNICAL DOCUMENTATION: JOB ID: [id number] [employer]- All Rights Reserved Rev-07/04 Reading location - IP/workstation name: [email or web address]
== END ==
LOC: RAD 15:34
PROVIDERS: ATTEND Family Medicine
DX: E28.2 Polycystic ovarian syndrome (principal)
CPT/HCPCS: 76830

== ENCOUNTER → 2018-12-17 | Outpatient (CLI) | payer OTHER ==
[2018-12-17 10:57] LABS: ANION GAP 13 (5-19); BLOOD UREA NITROGEN 6 mg/dL (7-20); CALCIUM 9.7 mg/dL (8.4-10.2); CARBON DIOXIDE 21 mmol/L (22-30); CHLORIDE 108 mmol/L (98-107); GLUCOSE 149 mg/dL (75-110); POTASSIUM 4.2 mmol/L (3.6-5.0)
== END ==
LOC: OD 10:12
PROVIDERS: ATTEND Family Medicine
DX: E28.2 Polycystic ovarian syndrome (principal); E53.9 Vitamin B deficiency, unspecified
CPT/HCPCS: 36415; 80048; 82607

== ENCOUNTER 2019-01-09 12:51 | Emergency (ER) | payer OTHER ==
[2019-01-09] MEDS ORDERED: ONDANSETRON HCL INJ/PF 4 MG/2 ML SDV IV ONE (13:25)
--- NOTE | 2019-01-09 13:26 | ER Document Report ---
ED Medical Screen (RME) - General Chief Complaint: Vaginal Bleeding Stated Complaint: VAGINAL BLEEDING Time Seen by Provider: 01/09/19 13:19 Primary Care Provider: ALEX ELDER MD [Primary Care Provider] - Follow up as needed TRAVEL OUTSIDE OF THE [place] IN LAST 30 DAYS: No - HPI Notes: 01/09/19 13:23 Patient is a 33-year-old female with history of diverticulosis and diverticuliti s who presents complaining of lower abdominal pain, nausea/vomiting that began yesterday. Patient states that she vomited twice this morning and the first 1 was black and the second 1 had some red blood in it. Patient states that her stools have been black and sticky. She is not on any blood thinning medications. Denies drug allergies. I have treated and performed a rapid initial assessment of this patient. A comprehensive ED assessment and evaluation of the patient, analysis of test results and completion of medical decision making process will be conducted by additional ED providers. PHYSICAL EXAMINATION: GENERAL: Well-appearing, well-nourished and in no acute distress. A&Ox4. Answers questions appropriately. Abdomen: Limited exam in triage, but patient is tender to her lower abdomen. - Related Data Allergies/Adverse Reactions: No Known Allergies Allergy (Verified 01/09/19 13:23) Past Medical History - Past Medical History Cardiac Medical History: Denies: Hx Congestive Heart Failure, Hx Coronary Artery Disease, Hx Heart Attack, Hx Hypertension Pulmonary Medical History: Denies: Hx Asthma, Hx Bronchitis, Hx COPD, Hx Pneumonia, Hx Tuberculosis Neurological Medical History: Denies: Hx Seizures, Hx Parkinson's Disease Endocrine Medical History: Denies: Hx Diabetes Mellitus Type 1, Hx Diabetes Mellitus Type 2 Renal/ Medical History: Denies: Hx End Stage Renal Disease, Hx Kidney Stones, Hx Peritoneal Dialysis GI Medical History: Denies: Hx Cirrhosis, Hx Gastroesophageal Reflux Disease, Hx Ulcer Musculoskeltal Medical History: Denies Hx Arthritis, Denies Hx Multiple Sclerosis Psychiatric Medical History: Denies: Hx Bipolar Disorder, Hx Depression, Hx Schizophrenia Past Surgical History: Reports: Hx Cholecystectomy, Hx Tonsillectomy, Hx Urinary Tract Surgery - Urethral stretching - Immunizations Hx Diphtheria, Pertussis, Tetanus Vaccination: Yes Doctor's Discharge - Discharge Referrals: ALEX ELDER MD [Primary Care Provider] - Follow up as needed
[2019-01-09 14:09] LABS: ABSOLUTE LYMPHOCYTES (AUTO) 1.1 10^3/uL (0.5-4.7); ABSOLUTE MONOCYTES (AUTO) 0.6 10^3/uL (0.1-1.4); ABSOLUTE NEUT (AUTO) 11.7 10^3/uL (1.7-8.2); BASOPHILS % (AUTO) 0.3 % (0-2); EOSINOPHILS % (AUTO) 0.2 % (0-6); HEMOGLOBIN 13.9 g/dL (12.0-15.5); LYMPHOCYTES % (AUTO) 8.5 % (13-45); MEAN CORPUSCULAR HEMOGLOBIN 29.6 pg (27.0-33.4); MEAN CORPUSCULAR VOLUME 87 fl (80-97); MONOCYTES % (AUTO) 4.1 % (3-13); PLATELET COUNT 336 10^3/uL (150-450); RED BLOOD COUNT 4.71 10^6/uL (3.72-5.28); RED CELL DISTRIBUTION WIDTH 14.5 % (11.5-14.0); SEGMENTED NEUTROPHILS % (AUTO) 86.9 % (42-78); TOTAL CELLS COUNTED % (AUTO) 100 %; WHITE BLOOD COUNT 13.5 10^3/uL (4.0-10.5)
[2019-01-09 14:24] LABS: ALBUMIN 4.1 g/dL (3.5-5.0); ALKALINE PHOSPHATASE 134 U/L (38-126); ANION GAP 12 (5-19); ASPARTATE AMINO TRANSFERASE 33 U/L (14-36); BILIRUBIN,DIRECT 0.2 mg/dL (0.0-0.4); BILIRUBIN,TOTAL 0.7 mg/dL (0.2-1.3); BLOOD UREA NITROGEN 6 mg/dL (7-20); CALCIUM 9.7 mg/dL (8.4-10.2); CARBON DIOXIDE 20 mmol/L (22-30); CHLORIDE 107 mmol/L (98-107); GLUCOSE 111 mg/dL (75-110); POTASSIUM 4.4 mmol/L (3.6-5.0); TOTAL PROTEIN 7.4 g/dL (6.3-8.2)
--- NOTE | 2019-01-09 14:42 | ER Document Report ---
ED General - General Chief Complaint: GI Bleeding Stated Complaint: VAGINAL BLEEDING Time Seen by Provider: 01/09/19 13:19 Primary Care Provider: ALEX ELDER MD [Primary Care Provider] - Follow up as needed TRAVEL OUTSIDE OF THE [place] IN LAST 30 DAYS: No - HPI Notes: Patient is 32-year-old white female with history of known diverticular colonic bleeding more remotely, last endoscopy colonoscopy was 2013 which did not need any intervention since bleeding was self resolved. She denies any history of esophageal pathology or more proximal bleeding or pathology. She did though today have one episode of vomitus earlier today which had some she said "black material in it. She has not thrown up since she says that today she has had mostly with some formed black stools and some red streaks 2 times She has not had any upper chest or stomach pain. No passing out or near passing out. No headache no other trauma or falls. No fevers chills sweats. No difficulty in urinating. She denies any vaginal bleeding actually in a few months, she has polycystic ovarian syndrome and is on regular oral contraceptive by mouth. She denies any sexual activity and she has not had any vaginal discharge. She is not on any other blood thinner she denies any sort of NSAID use such as ibuprofen Motrin aspirin or any [id number] substances regularly she says. Her last bowel movement was just after she arrived at the ED. She denies regular or any recent alcohol use she denies smoking or other drugs - Related Data Allergies/Adverse Reactions: No Known Allergies Allergy (Verified 01/09/19 13:23) Past Medical History - Social History Smoking Status: Never Smoker Family History: Reviewed & Not Pertinent Patient has suicidal ideation: No Patient has homicidal ideation: No - Past Medical History Cardiac Medical History: Denies: Hx Congestive Heart Failure, Hx Coronary Artery Disease, Hx Heart Attack, Hx Hypertension Pulmonary Medical History: Denies: Hx Asthma, Hx Bronchitis, Hx COPD, Hx Pneumonia, Hx Tuberculosis Neurological Medical History: Denies: Hx Seizures, Hx Parkinson's Disease Endocrine Medical History: Denies: Hx Diabetes Mellitus Type 1, Hx Diabetes M ellitus Type 2 Renal/ Medical History: Denies: Hx End Stage Renal Disease, Hx Kidney Stones, Hx Peritoneal Dialysis GI Medical History: Denies: Hx Cirrhosis, Hx Gastroesophageal Reflux Disease, Hx Ulcer Musculoskeletal Medical History: Denies Hx Arthritis, Denies Hx Multiple Sclerosis Psychiatric Medical History: Denies: Hx Bipolar Disorder, Hx Depression, Hx Schizophrenia Past Surgical History: Reports: Hx Cholecystectomy, Hx Tonsillectomy, Hx Urinary Tract Surgery - Urethral stretching - Immunizations Hx Diphtheria, Pertussis, Tetanus Vaccination: Yes Physical Exam - Vital signs Vitals: Temp Pulse Resp BP Pulse Ox 98.6 F 138 H 20 140/93 H 98 01/09/19 13:23 01/09/19 13:23 01/09/19 13:23 01/09/19 13:23 01/09/19 13:23 - Notes Notes: ___Gen:___Well-appearing, sits up in bed talks to me during the interview in no distress. Tachycardia 120-140, and normotensive at time of triage and in my e xam. NAD or inc WOB. +Alert, +interactive/cooperative. Patient is overweight. ___HEENT:___ NCAT. No gross ocular discharge, conjunctival pallor, injection or sleral icterus. Ext ears w/o deformity/otorrhea. Nares patent w/o (bloody) discharge. No stridor. No difficulty phonating or controlling secretions. Mouth/oropharynx musosa is pink/moist w/o deformity/edema/lesions. Base of uvula/posterior oropharynx visible, symmetric-appearing w/o mass effect/shift. ___Neck:___ No apparent difficulty w/ FROM. No gross deformity, masses, or skin changes. No palpable masses or TMG or gross LAD in cervical/submental/post- auricular zones. ___Chest:___ No inc labor symmetric b/l chest rise w/ spontaneous respirations at rate WNL. On auscultation no gross WRR or focal findings. +symmetric full BS heard all post/lateral/ant lung arias. ___CV:___ All ext WWP, pulses symmetric 2, rate 120, rhythm regular easily palpable and symmetric at distal UE/LE. No peripheral/truncal edema or color changes to suggest PVD. Quiet precordium w/o heaves/lifts. On auscultation no gross MRG. ___MSK:___No gross joint or bony deformities. No overlying skin changes, swelling, or warmth. No apparent difficulty flexing at hip, knee, ankle, shoulder, elbow, wrists. ___Abd:___ Benign exam. No distention/color changes/obvious masses. BS present on auscultation. Nontender to light/deep palpation in all 4 quadrants, no palpable masses or OMG. ___Rectal:___ No external lesions, hemorrhoids. On digital exam very very small amount of light brown stool in the rectal vault I do not think it is a significant enough amount but with developer was not positive for occult blood. ___GU:___ No suprapubic distention or ttp. Clear urine per specimen container. No gross ttp or palpable masses at CVA or inguinal regions b/l. ___Skin:___ intact, grossly healthy appearing for age. No obvious rashes, skin breakdown/wounds or color changes. No petechiae or ecchymoses. ___Neuro:___ Alert interactive, calm cooperative, SANTIAGO w/ intention. Ambulatory. Speech, language, comprehension WNL during my interview. No gross CN deficits. Strength symmetric 5/5 in upper/lower major mm groups tested. Sensation to light touch grossly intact/symmetric distal UE/LE. Balance/gait, fine repetitive movements w/ both hands and feet grossly intact w/o dysmetria/ataxia/tremor x4 ext. ___Psych:___ Behavior, speech (content/rate) appropriate. Denies SI/HI upon direct questioning. +Well-kempt. +Good hygiene. Not disheveled. Not anxious or reserved-appearing. Course - Re-evaluation Re-evalutation: 01/09/19 22:24 Patient's heart rate after 1 L of fluid was in the 110s, then when she was about 700 cc into the second liter it was around 100. Blood pressure continued to remain at her baseline and stable she continued to have no fevers and she is not had any rectal or bowel movements or GI bleeding while in the emergency department. She continues to look very well has a benign abdominal exam. Reviewed her CT scan and discussed with patient we discussed that she will need to return immediately for any of the signs of GI bleeding which I discussed with her or orthostasis which I discussed with her. Her primary care doctor she feels will be able to get her follow-up with the GI doctor and she will call as soon as possible. - Vital Signs Vital signs: Temp Pulse Resp BP Pulse Ox 99.4 F 138 H 28 H 146/92 H 95 01/09/19 18:48 01/09/19 13:23 01/09/19 22:06 01/09/19 22:06 01/09/19 22:06 - Laboratory Result Diagrams: 01/09/19 13:35 01/09/19 13:35 Laboratory results interpreted by me: 01/09/19 01/09/19 01/09/19 13:35 13:35 17:20 WBC 13.5 H RDW 14.5 H Lymph % (Auto) 8.5 L Absolute Neuts (auto) 11.7 H Seg Neutrophils % 86.9 H Carbon Dioxide 20 L BUN 6 L Glucose 111 H Alkaline Phosphatase 134 H Urine Ketones 20 H Urine Urobilinogen 2.0 H 01/09/19 21:40 Reviewed prior trends of hematocrit, today no different no other prior coagulopathy study derangements. Today no platelets derangements. Chemistries within normal limits otherwise. - Diagnostic Test Radiology reviewed: Image reviewed, Reports reviewed Radiology results interpreted by me: 01/09/19 21:41 CT scan showed diffuse pandiverticulosis without evidence of diverticulitis or gross active bleed. No other noted acute intra-abdominal process pelvic process - EKG Interpretation by Me Additional EKG results interpreted by me: 01/09/19 22:16 12-lead EKG just because her primary care had referred her to casino investigator for this long-standing tachycardia for which I do not know many other details. Again no passing out or near passing out or chest pain palpitations, in the chart her trend has been in the 90s before 70s before but on many times she is presented she has been in the 120s 110s 01/09/19 22:28 Today EKG at 2224 showed normal sinus rhythm rate 99 there was no change in EKG from 10-02-2018 which was sinus rate 103. At that time and on this EKG there is no change in the inferior leads Q waves. No ST elevations depressions no other interval prolongation or other derangements. Discharge - Discharge Clinical Impression: Diverticulosis of colon, History of GI diverticular bleed, GIB (gastrointestinal bleeding) Condition: Good Disposition: HOME, SELF-CARE Additional Instructions: Today in the emergency department your CT scan showed diffuse diverticulosis without evidence of inflammation. You did not have any bowel movements that were bloody while here and your blood count looks great. Your other labs look okay as well. For this reason want you to call for the first available PCP appointment or at least call to talk with them regarding setting up a referral for GI, since it is probably time for you to get new colonoscopy performed. Please though watch for any lightheadedness or any more red or black bowel movements or any new vomiting in that event we would want you to come back and see a medical provider. Regarding your tachycardia that has been present in all your medical visits in our chart I would recommend that you as your PCP recommended follow up with the casino investigator. Your PCP can make the referral once again if needed. Referrals: ALEX ELDER MD [Primary Care Provider] - Follow up as needed
[2019-01-09] MEDS ORDERED: RINGERS SOLUTION,LACTATED 1,000 ML IV ONE ×2 (15:07→20:22)
--- NOTE | 2019-01-09 17:08 | RADIOLOGY REPORT (SQ) ---
EXAM DESCRIPTION: CT ABD/PELVIS WITH IV ONLY COMPLETED DATE/TIME: 01/09/2019 4:44 pm REASON FOR STUDY: lower abd pain, h/o diverticulosis, black stool COMPARISON: 04/07/2018 TECHNIQUE: CT scan of the abdomen and pelvis performed using helical scanning technique with dynamic intravenous contrast injection. No oral contrast. Images reviewed with lung, soft tissue, and bone windows. Reconstructed coronal and sagittal MPR images reviewed. Delayed images for evaluation of the urinary system also acquired. All images stored on PACS. All CT scanners at this facility use dose modulation, iterative reconstruction, and/or weight based d osing when appropriate to reduce radiation dose to as low as reasonably achievable (ALARA). [facility]: Dose Right [facility]: CareDose [facility]: Dose Right [facility]: Teradose 4D [facility]: BitMethod CONTRAST TYPE AND DOSE: contrast/concentration: Isovue 350.00 mg/ml; Total Contrast Delivered: 100.0 ml; Total Saline Delivered: 72.0 ml RENAL FUNCTION: None required. The patient is less than 50 years old. RADIATION DOSE: CT Rad equipment meets quality standard of care and radiation dose reduction techniq ues were employed. CTDIvol: 20.8 - 21.1 mGy. DLP: 2417 mGy-cm.. LIMITATIONS: None. FINDINGS: LOWER CHEST: No significant findings. No nodules or infiltrates. LIVER: Normal size. No masses. No dilated ducts. SPLEEN: Normal size. No focal lesions. PANCREAS: No masses. No significant calcifications. No adjacent inflammation or peripancreatic fluid collections. Pancreatic duct not dilated. GALLBLADDER: Surgically absent. ADRENAL GLANDS: No significant masses or asymmetry. RIGHT KIDNEY AND URETER: No solid masses. No significant calcifications. No hydronephrosis or hyd roureter. LEFT KIDNEY AND URETER: No solid masses. No significant calcifications. No hydronephrosis or hydr oureter. AORTA AND VESSELS: No aneurysm. No dissection. Renal arteries, SMA, celiac without stenosis. RETROPERITONEUM: No retroperitoneal adenopathy, hemorrhage or masses. BOWEL AND PERITONEAL CAVITY: No masses or inflammatory changes. Pancolonic diverticulosis. No free fluid or peritoneal masses. Small rim calcifications in the hepatorenal recess, likely dropped galls tones. APPENDIX: Normal. PELVIS: No mass. No free fluid. Normal bladder. ABDOMINAL WALL: No masses. No hernias. BONES: No significant or acute findings. OTHER: No other significant finding. IMPRESSION: Pancolonic diverticulosis without acute CT abnormality of the abdomen or pelvis. There is no intraluminal contrast on delayed phase to suggest nidus of GI bleeding, although this is not a tailored multiphasic GI bleeding examination. TECHNICAL DOCUMENTATION: JOB ID: [id number] Quality ID # [id number]: Final reports with documentation of one or more dose reduction techniques (e.g., Au tomated exposure control, adjustment of the mA and/or kV according to patient size, use of iterative reconstruction technique) 2010 [employer]- All Rights Reserved Reading location - IP/workstation name: [email or web address]
[2019-01-09 17:46] LABS: APPEARANCE,URINE CLEAR; BILIRUBIN,URINE NEGATIVE (NEGATIVE); COLOR,URINE YELLOW; GLUCOSE, URINE NEGATIVE (NEGATIVE); KETONES,URINE 20 mg/dL (NEGATIVE); PROTEIN,URINE NEGATIVE (NEGATIVE); URINE SPECIFIC GRAVITY 1.045
[2019-01-09 22:10] VITALS: BP 146/92
--- NOTE | 2019-01-10 17:04 | EKG REPORT ---
SEVERITY:- BORDERLINE ECG - SINUS RHYTHM INFERIOR Q WAVES, PROBABLY NORMAL VARIATION : Confirmed by: Rickie Mayberry MD 10-Jan-2019 17:03:26
== END 2019-01-09 22:44 | disposition home or self-care (01) ==
LOC: ER 12:51
DX: K57.31 Diverticulosis of large intestine without perforation or abscess with bleeding (principal); R00.0 Tachycardia, unspecified; Z90.49 Acquired absence of other specified parts of digestive tract
CPT/HCPCS: 99285; 96361; 96374; 86900; 86901; 36415; 86850; 83690; 84443; 84703; 85025; 80053; 81001; 74177; 93005; 93010; J2405; J7120